=== PATIENT | male | born 1950 | race Caucasian/White ===

== ENCOUNTER → 2016-11-01 | Outpatient (CLI) | payer MEDICARE ==
--- NOTE | 2016-11-01 16:54 | XR ---
First digit left foot HISTORY: Pain Reviews of the first digit of the left foot There is marginal spurring, joint space loss, subchondral sclerosis present at the interphalangeal alonso int, metatarsophalangeal joint of the first digit of the left foot. 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 There is soft tissue swelling pres ent. No bone erosion. Alignment is maintained. IMPRESSION: Osteoarthritis.
--- NOTE | 2016-11-01 17:06 | XR ---
Left shoulder HISTORY: Pain 3 views of the left shoulder Bone mineralization and alignment are maintained. Some hypertrophic change questioned at the acromioc lavicular joint, glenohumeral joint shows some mild joint space loss. Distal acromion is downturned. IMPRESSION: Osteoarthritis, shoulder MRI may be of benefit, correlate for impingement
== END | disposition home or self-care (01) ==
LOC: RADXRMAIN 13:53
PROVIDERS: ATTEND Family Medicine
DX: M19.012 Primary osteoarthritis, left shoulder (principal); M19.072 Primary osteoarthritis, left ankle and foot

== ENCOUNTER → 2017-10-24 | Outpatient (CLI) | payer MEDICARE ==
--- NOTE | 2017-10-24 11:23 | XR ---
EXAMINATION TYPE: XR toes LT DATE OF EXAM: 10/24/2017 COMPARISON: 11/01/2016 HISTORY: Follow-up for gout of the left great toe. Left toe pain. TECHNIQUE: 3 views of the left great toe were obtained. FINDINGS: Again at the metacarpophalangeal joint and interphalangeal joint there are bony irregularit y, marginal spurring, joint space narrowing and subchondral sclerosis with overhanging edges. There i s no new osseous erosion or cortical reaction in comparison to the prior exam. Soft tissue swelling i s noted globally of the first digit. IMPRESSION: Similar arthrosis of the first digit at the metacarpophalangeal joint and interphalangeal joint may be on the basis of gouty arthrosis and/or osteoarthrosis. No new cortical erosion.
== END | disposition home or self-care (01) ==
LOC: RADXRMAIN 10:31
PROVIDERS: ATTEND Family Medicine
DX: M18.12 Unilateral primary osteoarthritis of first carpometacarpal joint, left hand (principal); M10.072 Idiopathic gout, left ankle and foot

== ENCOUNTER 2017-11-30 08:08 | Emergency (ER) | payer MEDICARE ==
[2017-11-30] MEDS ORDERED: SODIUM CHLORIDE 0.9% 1,000 ML IV STA (08:29)
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
[2017-11-30] MEDS ORDERED: diphenhydrAMINE 50 MG/ML 1 ML VIAL IVP STA (09:02)
[2017-11-30] MEDS ORDERED: ONDANSETRON 4 MG/2 ML VIAL IVP STA (09:02)
[2017-11-30 09:10] LABS: Basophils % (A) 1 %; Eosinophils # (A) 0.4 k/uL (0-0.7); Eosinophils % (A) 8 %; HCT 41.5 % (39.0-53.0); HGB 14.1 gm/dL (13.0-17.5); Lymphocytes % (A) 18 %; MCH 30.9 pg (25.0-35.0); MCHC 33.9 g/dL (31.0-37.0); MCV 91.3 fL (80.0-100.0); Mean Platelet Volume 6.6; Monocytes # (A) 0.6 k/uL (0-1.0); Monocytes % (A) 11 %; Neutrophils # (A) 3.3 k/uL (1.3-7.7); Neutrophils % (A) 61 %; Platelet Count 256 k/uL (150-450); RBC 4.55 m/uL (4.30-5.90); RDW 14.1 % (11.5-15.5); WBC 5.4 k/uL (3.8-10.6)
[2017-11-30 09:18] LABS: Partial Thromboplastin Time 25.9 sec (22.0-30.0); Prothrombin Time 9.7 sec (9.0-12.0)
[2017-11-30 09:21] LABS: ALT 35 U/L (21-72); AST 21 U/L (17-59); Albumin 3.8 g/dL (3.5-5.0); Alkaline Phosphatase 69 U/L (38-126); Anion Gap 6 mmol/L; Blood Urea Nitrogen 15 mg/dL (9-20); Calcium 9.2 mg/dL (8.4-10.2); Carbon Dioxide 27 mmol/L (22-30); Chloride 107 mmol/L (98-107); Glucose 113 mg/dL (74-99); Magnesium 1.9 mg/dL (1.6-2.3); Phosphorus 3.5 mg/dL (2.5-4.5); Potassium 4.1 mmol/L (3.5-5.1); Sodium 140 mmol/L (137-145); Total Bilirubin 0.4 mg/dL (0.2-1.3); Total Protein 6.2 g/dL (6.3-8.2)
[2017-11-30 09:33] LABS: Creatine Kinase 66 U/L (55-170)
[2017-11-30 09:44] LABS: Creatine Kinase MB 1.6 ng/mL (0.0-2.4); Troponin I <0.012 ng/mL (0.000-0.034)
--- NOTE | 2017-11-30 09:55 | CT ---
EXAMINATION TYPE: CT brain wo con DATE OF EXAM: 11/30/2017 COMPARISON: None HISTORY: 67-year-old male complains of headache and weakness. TECHNIQUE: Examination was done in axial plane without intravenous contrast. Coronal and sagittal r econstructions performed. CT DLP: 861 mGycm Automated exposure control for dose reduction was used. FINDINGS: There is no evidence of acute intracranial hemorrhage, acute ischemic changes, mass, mass-effect, or extra-axial fluid collection. There is no effacement of cerebral sulci or basal subarachnoid cister ns. There is no hydrocephalus. There is no midline shift. Thomas-white matter distinction is preserv ed. There is mild bifrontal atrophy. Moderate mucosal thickening ethmoid air cells. Mastoid air cells well pneumatized. IMPRESSION: Mild bifrontal atrophy. No acute intracranial abnormality seen. Moderate chronic ethmoid sinus disease.
--- NOTE | 2017-11-30 10:39 | CT ---
EXAMINATION TYPE: CT angio head neck DATE OF EXAM: 11/30/2017 COMPARISON: Correlation CT brain same day HISTORY: 67-year-old male with pain and weakness TECHNIQUE: Contiguous axial scanning of the head and neck performed with IV Contrast, patient injecte d with 65 mL of Isovue 370. Coronal/sagittal MIP reconstructions performed. CT DLP: 861.00 mGycm Automated exposure control for dose reduction was used. FINDINGS: Neck: There is underlying nodularity within the thyroid gland measuring up to 2.1 cm on the right and 1.2 c m on the left. Dedicated thyroid ultrasound could further evaluate. Conventional arch vessel branching anatomy. Mild atherosclerotic calcifications at the origin of the left subclavian artery without significant stenosis. There is mild atherosclerotic calcification at the right carotid bifurcation. The right common and in ternal carotid arteries are patent without significant stenosis. Mild to moderate atherosclerotic change at the left bifurcation and carotid bulb causing a mild, less than 30% stenosis at the carotid bulb level. The remainder of the left common and internal carotid a rteries are patent. The right vertebral artery is diminutive. The vertebral arteries are otherwise patent throughout thei r course. Head: The V4 segment right vertebral artery becomes even more diminutive. Incidental prominent right camera mechanic ior communicating artery. Very minimal to mild atherosclerotic calcifications are present in the carotid siphons. No significan t stenosis, arterial occlusion, or aneurysmal change. Dural venous sinuses are patent. IMPRESSION: 1. NECK: [id number] atherosclerotic change at the left carotid bifurcation with mild, less than 30% stenosis at the left carotid bulb. No hemodynamically significant stenosis appreciated in either internal carotid artery. Incidental dominant left vertebral artery. 2. HEAD: Again, diminutive right vertebral artery. Incidental prominent right posterior communicating artery. No significant stenosis, arterial occlusion, or aneurysmal changes seen. 3. Other: Multiple nodules in the thyroid gland measuring up to 2.1 cm. Dedicated thyroid ultrasound recommended on a nonemergent basis.
[2017-11-30 11:25] VITALS: BP 145/90; PULSE 79; RESP 18; TEMP 97
== END 2017-11-30 11:25 | disposition home or self-care (01) ==
LOC: EC 08:08
DX: H81.10 Benign paroxysmal vertigo, unspecified ear (principal); R51 Headache; E78.5 Hyperlipidemia, unspecified; I10 Essential (primary) hypertension; J44.9 Chronic obstructive pulmonary disease, unspecified; E07.9 Disorder of thyroid, unspecified; M19.90 Unspecified osteoarthritis, unspecified site; N42.9 Disorder of prostate, unspecified; G47.30 Sleep apnea, unspecified; F32.9 Major depressive disorder, single episode, unspecified; F41.9 Anxiety disorder, unspecified; Z87.891 Personal history of nicotine dependence; Z79.1 Long term (current) use of non-steroidal anti-inflammatories (NSAID); Z79.02 Long term (current) use of antithrombotics/antiplatelets; Z79.51 Long term (current) use of inhaled steroids; Z79.82 Long term (current) use of aspirin; Z79.899 Other long term (current) drug therapy; Z86.14 Personal history of Methicillin resistant Staphylococcus aureus infection; Z98.890 Other specified postprocedural states
CPT/HCPCS: 99284 ×2; 96374 ×2; 96375 ×2; 96361 ×3; 36415; 93005; 80053; 82550; 82553; 83735; 84100; 84484; 85025; 85610; 85730; 70496; 70450; 70498; J1200; J2405; Q9967

== ENCOUNTER → 2018-01-04 | Outpatient (CLI) | payer MEDICARE ==
[2018-01-04 15:18] LABS: T4, Free (Free Thyroxine) 0.94 ng/dL (0.78-2.19)
== END | disposition home or self-care (01) ==
LOC: LABWHC1 14:24
PROVIDERS: ATTEND Internal Medicine Endocrinology, Diabetes & Metabolism
DX: E04.1 Nontoxic single thyroid nodule (principal)
CPT/HCPCS: 36415; 84439; 84443

== ENCOUNTER 2018-01-22 08:55 | Inpatient (IN) | payer MEDICARE ==
[2018-01-22] MEDS ORDERED: FUROSEMIDE 10 MG/ML 2 ML VIAL IV ONE (09:22)
[2018-01-22] MEDS ORDERED: HYDROmorphone 1 MG/ML 1 ML SYRINGE IVP STA (09:26)
[2018-01-22] MEDS ORDERED: IPRATROPIUM-ALBUTEROL 3 ML NEB INHALATION STA (09:26)
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
[2018-01-22] MEDS ORDERED: FUROSEMIDE 10 MG/ML 4 ML VIAL IV STA (09:27)
[2018-01-22] MEDS ORDERED: SODIUM CHLORIDE 0.9% 500 ML IV SCH (09:30)
[2018-01-22 09:44] LABS: Basophils % (A) 0 %; Eosinophils # (A) 0.3 k/uL (0-0.7); Eosinophils % (A) 3 %; HCT 32.9 % (39.0-53.0); HGB 10.9 gm/dL (13.0-17.5); Lymphocytes # (A) 0.9 k/uL (1.0-4.8); Lymphocytes % (A) 11 %; MCH 30.2 pg (25.0-35.0); MCV 91.4 fL (80.0-100.0); Mean Platelet Volume 6.8; Monocytes # (A) 0.6 k/uL (0-1.0); Monocytes % (A) 7 %; Neutrophils # (A) 6.7 k/uL (1.3-7.7); Neutrophils % (A) 78 %; Platelet Count 289 k/uL (150-450); RDW 13.8 % (11.5-15.5); WBC 8.6 k/uL (3.8-10.6)
[2018-01-22 09:47] LABS: INR 1.1 (<1.2); Partial Thromboplastin Time 28.2 sec (22.0-30.0); Prothrombin Time 10.3 sec (9.0-12.0)
[2018-01-22 09:51] LABS: ALT 117 U/L (21-72); AST 99 U/L (17-59); Albumin 3.2 g/dL (3.5-5.0); Alkaline Phosphatase 93 U/L (38-126); Anion Gap 8 mmol/L; Blood Urea Nitrogen 24 mg/dL (9-20); Calcium 8.6 mg/dL (8.4-10.2); Carbon Dioxide 23 mmol/L (22-30); Chloride 105 mmol/L (98-107); Glucose 121 mg/dL (74-99); Potassium 4.4 mmol/L (3.5-5.1); Sodium 136 mmol/L (137-145); Total Bilirubin 0.6 mg/dL (0.2-1.3); Total Protein 5.9 g/dL (6.3-8.2)
--- NOTE | 2018-01-22 09:55 | XR ---
EXAMINATION TYPE: XR chest 2V DATE OF EXAM: 01/22/2018 COMPARISON: 03/09/2016 HISTORY: Shortness of breath TECHNIQUE: Frontal and lateral views of the chest are obtained. FINDINGS: Scattered senescent parenchymal changes noted. Hyperinflation compatible with COPD. No evidence for infiltrate. No evidence for atelectasis. Heart size is stable. Mediastinal structures are stable and grossly unremarkable. No evidence for hilar prominence. Degenerative changes dorsal spine. IMPRESSION: 1. No evidence for acute pulmonary disease.
[2018-01-22 10:38] LABS: Appearance,Urine Clear (Clear); Bilirubin,Urine Negative (Negative); Blood,Urine Negative (Negative); Color,Urine Yellow; Glucose,Urine (UA) Negative (Negative); Ketones,Urine Negative (Negative); Leukocyte Esterase,Urine Negative (Negative); Nitrite,Urine Negative (Negative); PH, Urine 5.5 (5.0-8.0); Protein,Urine Negative (Negative); Specific Gravity,Urine 1.009 (1.001-1.035); Urobilinogen,Urine <2.0 mg/dL (<2.0)
[2018-01-22] MEDS ORDERED: LEVOFLOXACIN 750MG-D5W PMX 750 MG in DEXTROSE/WATER 1 150ML.BAG IVPB STA (11:13)
--- NOTE | 2018-01-22 11:17 | US ---
EXAMINATION TYPE: US venous doppler duplex LE LT DATE OF EXAM: 01/22/2018 9:23 AM COMPARISON: NONE CLINICAL HISTORY: Pain. Swelling since bee stings on Dec 31, 2017 SIDE PERFORMED: Left TECHNIQUE: The lower extremity deep venous system is examined utilizing real time linear array sonog cheyanne with graded compression, doppler sonography and color-flow sonography. VESSELS IMAGED: External Iliac Vein (EIV) Common Femoral Vein Deep Femoral Vein Greater Saphenous Vein * Femoral Vein Popliteal Vein Small Saphenous Vein * (* superficial vessels) Left Leg: Negative for DVT IMPRESSION: 1. No diagnostic evidence of DVT
[2018-01-22] MEDS: FUROSEMIDE 10 MG/ML 4 ML VIAL IV SCH (15:17)
[2018-01-22] MEDS: IPRATROPIUM-ALBUTEROL 3 ML NEB INHALATION SCH ×3 (15:51→23:41)
[2018-01-22] MEDS: NAPROXEN 250 MG TAB PO SCH (18:26)
[2018-01-22] MEDS: ACETAMINOPHEN TAB 325 MG TAB PO PRN (18:27)
[2018-01-22] MEDS: ATORVASTATIN 80 MG TAB PO SCH (19:51)
[2018-01-22] MEDS: DULoxetine HCL 60 MG CAPSULE.DR PO SCH (19:51)
[2018-01-22] MEDS: MONTELUKAST 10 MG TAB PO SCH (19:52)
[2018-01-22] MEDS: METOPROLOL TARTRATE 25 MG TAB PO SCH (19:52)
[2018-01-23] MEDS: FUROSEMIDE 10 MG/ML 4 ML VIAL IV SCH ×2 (00:36→08:16)
[2018-01-23] MEDS: IPRATROPIUM-ALBUTEROL 3 ML NEB INHALATION SCH ×5 (03:56→19:11)
[2018-01-23] MEDS: NAPROXEN 250 MG TAB PO SCH ×2 (06:31→17:55)
[2018-01-23] MEDS: LEVOTHYROXINE 25 MCG TAB PO SCH (06:31)
[2018-01-23] MEDS: EZETIMIBE 10 MG TAB PO SCH (08:16)
[2018-01-23] MEDS: POTASSIUM CHLORIDE ER 10 MEQ TAB.ER.PRT PO SCH (08:17)
[2018-01-23] MEDS: LISINOPRIL 10 MG TAB PO SCH (08:17)
[2018-01-23] MEDS: ASPIRIN 81 MG PO SCH (08:17)
[2018-01-23] MEDS: TAMSULOSIN 0.4 MG CAP.ER.24H PO SCH (08:17)
[2018-01-23] MEDS: METOPROLOL TARTRATE 25 MG TAB PO SCH ×2 (08:17→22:01)
[2018-01-23] MEDS: DULoxetine HCL 60 MG CAPSULE.DR PO SCH ×2 (08:17→22:00)
[2018-01-23] MEDS ORDERED: MELOXICAM 7.5 MG TAB PO SCH (09:00)
[2018-01-23] MEDS ORDERED: LEVOFLOXACIN 750MG-D5W PMX 750 MG in DEXTROSE/WATER 1 150ML.BAG IVPB SCH (09:00)
[2018-01-23] MEDS ORDERED: VANCOMYCIN IV PER PHARMACY 1 EACH MISC MISCELLANE PRN (12:28)
[2018-01-23] MEDS ORDERED: ALPRAZolam 0.25 MG TAB PO PRN (12:56)
[2018-01-23] MEDS ORDERED: ONDANSETRON 4 MG/2 ML VIAL IVP PRN (12:56)
[2018-01-23] MEDS ORDERED: MELATONIN 3 MG TABLET PO PRN (12:56)
[2018-01-23] MEDS: VANCOMYCIN 2,000 MG in SODIUM CHLORIDE 0.9% 500 ML IVPB SCH ×2 (13:11→22:51)
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
[2018-01-23] MEDS ORDERED: LIDOCAINE 1% INJ 10MG/ML (20 ML MDV) SQ ONE (14:34)
[2018-01-23] MEDS ORDERED: HYDROmorphone 1 MG/ML 1 ML SYRINGE ONE (14:55)
[2018-01-23] MEDS ORDERED: HYDROmorphone 1 MG/ML 1 ML SYRINGE IVP STA (15:10)
[2018-01-23] MEDS: ENOXAPARIN 40 MG/0.4 ML SYRINGE SQ SCH (15:11)
[2018-01-23] MEDS: FUROSEMIDE 40 MG TAB PO SCH (15:15)
--- NOTE | 2018-01-23 16:09 | CONS ---
CONSULTATION This is a 67-year-old gentleman who came to the [facility] ER with a history of marked swelling of his left lower extremity. This started about 3 weeks ago when he was stung by a bee. Now he has developed marked swelling and redness and there is a blister formation noted on the lower extremity and there is fluctuation of fluid most likely abscess. The patient is scheduled to have I and D and take deep culture. MEDICAL HISTORY: Patient has a history of coronary artery disease, hyperlipidemia, hypertension, osteoarthritis, obstructive sleep apnea, on CPAP. EXAMINATION: NECK: Supple trachea central. CHEST: Clear to auscultation. ABDOMEN: Soft. Femoral pulses are present. The left lower extremity has marked swelling and there is some blister formation noted at the lower 1/3 of the leg and also there was a fluctuation noted that seems to be abscess. PLAN: I and D and deep culture and local wound care. MMODL / IJN: [id number] /
[2018-01-23] MEDS: MONTELUKAST 10 MG TAB PO SCH (22:00)
[2018-01-23] MEDS: ATORVASTATIN 80 MG TAB PO SCH (22:00)
[2018-01-23] MEDS: SILVER sulfADIAZINE Cream 400 GM 1 APPLIC APPLIC TOPICAL SCH (22:01)
[2018-01-24] MEDS: IPRATROPIUM-ALBUTEROL 3 ML NEB INHALATION SCH ×5 (00:35→20:02)
[2018-01-24] MEDS ORDERED: IPRATROPIUM-ALBUTEROL 3 ML NEB INHALATION PRN (00:35)
[2018-01-24] MEDS: NAPROXEN 250 MG TAB PO SCH ×2 (05:41→18:11)
[2018-01-24] MEDS: LEVOTHYROXINE 25 MCG TAB PO SCH (05:41)
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
[2018-01-24] MEDS: VANCOMYCIN 2,000 MG in SODIUM CHLORIDE 0.9% 500 ML IVPB SCH ×2 (08:12→21:19)
--- NOTE | 2018-01-24 08:34 | PCN ---
PROCEDURE NOTE PREOPERATIVE DIAGNOSIS: Abscess left leg involving the anterior aspect of the lower leg. PROCEDURE: This patient was seen. The patient came with cellulitis and blister formation and abscess formation on the lower anterior aspect of the left leg. Left leg was prepped and draped in usual sterile manner and 1% lidocaine infiltrated. A 3 cm incision was made on the anterior aspect of the lower leg, deepened through skin, fat and fascia. Upon opening with hemostat, a large amount of pus came out, which was drained. We took the culture from the from the pus and after that, we irrigated the wound with saline and then we used Silvadene cream for the cellulitis and incision was packed with gauze and dressing applied. Patient tolerated the procedure well. PLAN: We will change the dressing tomorrow. Left leg elevation. MMODL / IJN: [id number] /
[2018-01-24] MEDS ORDERED: LEVOFLOXACIN 750 MG TAB PO SCH (09:00)
[2018-01-24] MEDS: TAMSULOSIN 0.4 MG CAP.ER.24H PO SCH (09:05)
[2018-01-24] MEDS: LISINOPRIL 10 MG TAB PO SCH (09:06)
[2018-01-24] MEDS: EZETIMIBE 10 MG TAB PO SCH (09:06)
[2018-01-24] MEDS: METOPROLOL TARTRATE 25 MG TAB PO SCH ×2 (09:06→21:16)
[2018-01-24] MEDS: POTASSIUM CHLORIDE ER 10 MEQ TAB.ER.PRT PO SCH (09:06)
[2018-01-24] MEDS: DULoxetine HCL 60 MG CAPSULE.DR PO SCH ×2 (09:06→21:17)
[2018-01-24] MEDS: FUROSEMIDE 40 MG TAB PO SCH ×2 (09:06→18:12)
[2018-01-24 09:39] LABS: Basophils # (A) 0.1 k/uL (0-0.2); Basophils % (A) 1 %; Eosinophils # (A) 0.4 k/uL (0-0.7); Eosinophils % (A) 4 %; HCT 35.6 % (39.0-53.0); HGB 11.3 gm/dL (13.0-17.5); Lymphocytes # (A) 1.1 k/uL (1.0-4.8); Lymphocytes % (A) 13 %; MCH 29.5 pg (25.0-35.0); MCHC 31.8 g/dL (31.0-37.0); MCV 92.6 fL (80.0-100.0); Mean Platelet Volume 6.4; Monocytes # (A) 0.6 k/uL (0-1.0); Monocytes % (A) 7 %; Neutrophils # (A) 5.9 k/uL (1.3-7.7); Neutrophils % (A) 73 %; Platelet Count 393 k/uL (150-450); RBC 3.84 m/uL (4.30-5.90); RDW 13.7 % (11.5-15.5); WBC 8.1 k/uL (3.8-10.6)
[2018-01-24 09:57] LABS: Anion Gap 14 mmol/L; Blood Urea Nitrogen 23 mg/dL (9-20); Calcium 9.1 mg/dL (8.4-10.2); Carbon Dioxide 22 mmol/L (22-30); Chloride 101 mmol/L (98-107); Glucose 132 mg/dL (74-99); Potassium 4.6 mmol/L (3.5-5.1); Sodium 137 mmol/L (137-145)
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
--- NOTE | 2018-01-24 12:36 | ECHOF ---
Referral Reason:sob MEASUREMENTS -------- HEIGHT: 188.0 cm WEIGHT: 142.9 kg BP: 125/74 RVIDd: 3.2 cm (< 3.3) IVSd: 1.3 cm (0.6 - 1.1) LVIDd: 5.6 cm (3.9 - 5.3) LVPWd: 1.1 cm (0.6 - 1.1) IVSs: 1.6 cm LVIDs: 4.1 cm LVPWs: 1.8 cm LA Diam: 4.5 cm (2.7 - 3.8) LAESV Index (A-L): 28.38 ml/m Ao Diam: 3.6 cm (2.0 - 3.7) AV Cusp: 2.5 cm (1.5 - 2.6) MV EXCURSION: 22.495 mm (> 18.000) MV EF SLOPE: 128 mm/s (70 - 150) EPSS: 0.6 cm MV E Michael: 1.11 m/s MV DecT: 218 ms MV A Michael: 0.92 m/s MV E/A Ratio: 1.21 FINDINGS -------- Sinus rhythm. This was a technically adequate study. The left ventricular size is normal. Left ventricular wall thickness is normal. Overall left vent ricular systolic function is normal with, an EF between 60 - 65 %. The right ventricle is normal in size. Normal LA size by volume 22+/-6 ml/m2. The right atrium is normal in size. There is mild aortic valve sclerosis. Mild mitral annular calcification present. The tricuspid valve appears structurally normal. The pulmonic valve was not well visualized. The aortic root size is normal. Normal inferior vena cava with normal inspiratory collapse consistent with estimated right atrial pre ssure of 5 mmHg. The inferior vena cava is mildly dilated. There is no pericardial effusion. CONCLUSIONS -------- 1. Sinus rhythm. 2. This was a technically adequate study. 3. The left ventricular size is normal. 4. Left ventricular wall thickness is normal. 5. Overall left ventricular systolic function is normal with, an EF between 60 - 65 %. 6. The right ventricle is normal in size. 7. Normal LA size by volume 22+/-6 ml/m2. 8. The right atrium is normal in size. 9. There is mild aortic valve sclerosis. 10. Mild mitral annular calcification present. 11. The tricuspid valve appears structurally normal. 12. The pulmonic valve was not well visualized. 13. The aortic root size is normal. 14. Normal inferior vena cava with normal inspiratory collapse consistent with estimated right atrial pressure of 5 mmHg. 15. The inferior vena cava is mildly dilated. 16. There is no pericardial effusion. SHIP CONSTRUCTION TEACHER: Ester Sood RDCS
[2018-01-24] MEDS: SILVER sulfADIAZINE Cream 400 GM 1 APPLIC APPLIC TOPICAL SCH ×2 (12:47→21:21)
[2018-01-24] MEDS: ENOXAPARIN 40 MG/0.4 ML SYRINGE SQ SCH (12:47)
[2018-01-24] MEDS: ASPIRIN 81 MG PO SCH (12:47)
[2018-01-24] MEDS ORDERED: LACTATED RINGERS 1,000 ML IV ONE (15:47)
[2018-01-24] MEDS ORDERED: PROPOFOL 10 MG/ML 20 ML VIAL IV ONE (15:58)
[2018-01-24] MEDS ORDERED: MIDAZOLAM 2 MG/2 ML VIAL ONE (15:58)
[2018-01-24] MEDS ORDERED: fentaNYL (PF) 50 MCG/ML 2 ML AMP ONE (15:58)
[2018-01-24] MEDS ORDERED: KETAMINE 10 MG/ML 20 ML VIAL ONE (15:58)
[2018-01-24] MEDS ORDERED: LIDOCAINE 1% INJ 10MG/ML (20 ML MDV) ONE (15:58)
[2018-01-24] MEDS ORDERED: LIDOCAINE 1% INJ 10MG/ML (20 ML MDV) SQ ONE ×2 (16:18→16:36)
[2018-01-24 17:02] LABS: Glucose,Whole Blood 90 mg/dL (75-99)
[2018-01-24] MEDS ORDERED: HYDROmorphone 1 MG/ML 1 ML SYRINGE IVP ONE (17:09)
--- NOTE | 2018-01-24 17:52 | PN ---
PROGRESS NOTE DATE OF SERVICE: 01/24/2018 REASON FOR FOLLOWUP: Left leg abscess and cellulitis. INTERVAL HISTORY: The patient is afebrile. He is currently breathing comfortably. Denies having any chest pain or shortness of breath or cough. No abdominal pain. Overall pain and swelling to the left leg have slightly decreased. However, the patient has been evaluated by Vascular Surgery and planning for being taken to the OR for drainage of any deep collection this afternoon. PHYSICAL EXAMINATION: Blood pressure is 125/74 with a pulse of 88, temperature 97.5. He is 95% on room air. General description is an elderly male up in the chair in no distress. RESPIRATORY SYSTEM: Unlabored breathing. Clear to auscultation anteriorly. HEART: S1, S2. Regular rate and rhythm. Left is currently dressed up. No obvious drainage on the dressing. LABS: Hemoglobin 11.3, white count 8.1. BUN of 23, creatinine 0.93. Wound culture is currently showing a presumptive Staph aureus. DIAGNOSTIC IMPRESSION AND PLAN: Patient with left leg abscess and cellulitis, status post drainage, with plan for deep drainage this afternoon. Culture showing presumptive Staphylococcus aureus, likely MRSA. Patient is covered with vancomycin, Pharmacy to dose, target of 15. That will be continued. Discontinue Levaquin, watching his kidney function closely as well as cultures. Family present at the bedside. Their questions were answered. MMODL / IJN: [id number] /
[2018-01-24] MEDS: ATORVASTATIN 80 MG TAB PO SCH (21:16)
[2018-01-24] MEDS: MONTELUKAST 10 MG TAB PO SCH (21:17)
--- NOTE | 2018-01-24 23:16 | PN ---
PROGRESS NOTE DATE OF SERVICE: 01/24/2018 PRESENT COMPLAINT: Leg abscess. INTERVAL HISTORY: This is a patient following a bee bite, developed abscess on the leg. This was drained yesterday again. The patient is taken to the OR today. A significant amount of pus was obtained. I do not have the formal operative report. The patient is lying in bed. The patient is feeling better. No fever, chills. REVIEW OF SYSTEMS: Done for constitutional, cardiovascular, GI, pulmonary; relevant findings above. CURRENT MEDICATIONS: Reviewed that include IV vancomycin. EXAMINATION: Afebrile, pulse 81, respirations 14, blood pressure 117/61, pulse ox 95% on room air. GENERAL APPEARANCE: Lying in bed, awake. EYES: Pupils equal. Conjunctivae normal. HEENT: External nose and ears normal. Oral cavity normal. NECK: JVD not raised palpable. Mass not palpable. RESPIRATORY: Effort normal. LUNGS: Diminished breath sounds. CARDIOVASCULAR: First and second sounds normal. No edema. ABDOMEN: Soft, nontender. Liver and spleen not palpable. PSYCHIATRY: Alert and oriented x3. Mood and affect normal. DERMATOLOGICAL: Left leg has a dressing in place. INVESTIGATIONS: White count 8.1, hemoglobin 11.3. Potassium 4.6, creatinine 0.93. Wound cultures growing Staph aureus. ASSESSMENT: 1. Left leg with a severe abscess in place, growing Staphylococcus aureus. The patient is on IV vancomycin, status post incision and drainage x2. 2. Coronary artery disease with prior stent in 2016. 3. Chronic obstructive pulmonary disease in an ex-smoker with acute exacerbation. 4. Hyperlipidemia. 5. Essential hypertension. 6. Primary osteoarthritis. 7. Benign prostatic hypertrophy. 8. Obstructive sleep apnea, uses a CPAP. 9. Morbid obesity, BMI of 40.1. 10.Hypothyroid. 11.Anxiety and depression, not otherwise specified. PLAN: Continue current medication and treatment plan, including IV vancomycin. Care was discussed with the patient. Wound care to continue per Dr. Burton. Follow. MMODL / IJN: [id number] /
[2018-01-25] MEDS: LEVOTHYROXINE 25 MCG TAB PO SCH (06:02)
[2018-01-25] MEDS: NAPROXEN 250 MG TAB PO SCH ×2 (06:02→18:58)
--- NOTE | 2018-01-25 06:23 | PCN ---
PROCEDURE NOTE SURGEON: Melquiades Burton MD PREOPERATIVE DIAGNOSIS: Abscess left lower extremity. POSTOPERATIVE DIAGNOSIS: PROCEDURE: I and D of the abscess. PROCEDURE: This patient was brought to the operating room. This patient had a history of bee sting about 2 weeks ago, history of diabetes. The patient has marked cellulitis and swelling and some blister formation noted. Left leg was prepped and draped in usual sterile manner. The patient had I and D done yesterday. He developed recurrent abscess on the lower leg, medial aspect of the lower leg and the lateral aspect of the lower leg. It was prepped and draped in usual sterile manner. An incision on the anterior leg was extended and a pocket of pus was drained and then another incision was made on the medial aspect of the left lower leg about 2 cm incision, deepened skin and fat and there was a pocket of pus which was drained. Then there was some noted on the upper aspect of the lower leg and a small incision was made about 1 cm, but no pus was noted. The wound was copiously irrigated with hydrogen peroxide and saline and there was no evidence of necrotizing fasciitis noted. Wound incision was kept open and we put a iodoform gauze packed and dressing applied. Patient will need change of dressing daily. Continue with the same IV antibiotic and leg elevation. MMODL / IJN: [id number] /
[2018-01-25] MEDS: IPRATROPIUM-ALBUTEROL 3 ML NEB INHALATION SCH ×4 (06:49→20:08)
[2018-01-25] MEDS: DULoxetine HCL 60 MG CAPSULE.DR PO SCH ×2 (08:27→21:01)
[2018-01-25] MEDS: ASPIRIN 81 MG PO SCH (08:27)
[2018-01-25] MEDS: POTASSIUM CHLORIDE ER 10 MEQ TAB.ER.PRT PO SCH (08:27)
[2018-01-25] MEDS: VANCOMYCIN 2,000 MG in SODIUM CHLORIDE 0.9% 500 ML IVPB SCH (08:28)
[2018-01-25] MEDS: FUROSEMIDE 40 MG TAB PO SCH ×2 (08:28→17:44)
[2018-01-25] MEDS: ENOXAPARIN 40 MG/0.4 ML SYRINGE SQ SCH (08:28)
[2018-01-25] MEDS: EZETIMIBE 10 MG TAB PO SCH (08:28)
[2018-01-25] MEDS: SILVER sulfADIAZINE Cream 400 GM 1 APPLIC APPLIC TOPICAL SCH ×2 (08:28→22:40)
[2018-01-25] MEDS: TAMSULOSIN 0.4 MG CAP.ER.24H PO SCH (08:28)
[2018-01-25] MEDS: LISINOPRIL 10 MG TAB PO SCH (08:28)
[2018-01-25] MEDS: METOPROLOL TARTRATE 25 MG TAB PO SCH ×2 (08:28→21:01)
[2018-01-25 09:25] LABS: Basophils # (A) 0.1 k/uL (0-0.2); Basophils % (A) 1 %; Eosinophils # (A) 0.4 k/uL (0-0.7); Eosinophils % (A) 5 %; HGB 10.8 gm/dL (13.0-17.5); Lymphocytes # (A) 1.1 k/uL (1.0-4.8); Lymphocytes % (A) 14 %; MCH 29.6 pg (25.0-35.0); MCHC 31.8 g/dL (31.0-37.0); MCV 92.9 fL (80.0-100.0); Mean Platelet Volume 6.7; Monocytes # (A) 0.6 k/uL (0-1.0); Monocytes % (A) 7 %; Neutrophils # (A) 5.8 k/uL (1.3-7.7); Neutrophils % (A) 72 %; Platelet Count 429 k/uL (150-450); RBC 3.66 m/uL (4.30-5.90); RDW 13.7 % (11.5-15.5); WBC 8.1 k/uL (3.8-10.6)
[2018-01-25 09:48] LABS: Anion Gap 9 mmol/L; Blood Urea Nitrogen 22 mg/dL (9-20); Calcium 8.8 mg/dL (8.4-10.2); Carbon Dioxide 28 mmol/L (22-30); Chloride 101 mmol/L (98-107); Glucose 122 mg/dL (74-99); Potassium 4.8 mmol/L (3.5-5.1); Sodium 138 mmol/L (137-145)
--- NOTE | 2018-01-25 12:24 | P.PN ---
Subjective Mr. Cosby is seen and examined sitting up in the chair eating breakfast. He underwent incision and drainage of left lower extremity abscess and is currently receiving IV antibiotics. Echocardiogram obtained reveals preserved left ventricular systolic function with ejection fraction 60-65%, mild aortic valve sclerosis with no stenosis. Laboratory data reviewed, hemoglobin 10.8, platelets 429, sodium 138, potassium 4.8, creatinine 0.88. Blood pressure 108/ 68 heart rate 74. He denies symptoms of chest pain shortness of breath, dizziness or palpitations. He states he has been standing up and bearing weight on his left leg without difficulty. Objective - Vital Signs Vital signs: Vital Signs Temp 97.0 F L 01/25/18 07:00 Pulse 77 01/25/18 10:51 Resp 18 01/25/18 07:00 BP 108/68 01/25/18 07:00 Pulse Ox 93 L 01/25/18 07:00 Intake & Output 01/24/18 01/25/18 01/25/18 18:59 06:59 18:59 Intake Total 1000 900 240 Output Total 10 Balance 990 900 240 Intake: IV 800 Intake, IV Titration 500 Amount Vancomycin 2,000 mg In 500 Sodium Chloride 0.9% 500 ml @ 167 mls/hr IVPB Q12HR FADI Rx#:[id number] Oral 200 400 240 Output: Estimated Blood Loss 10 Other: Voiding Method Urinal # Voids 2 1 # Bowel Movements 0 - Exam GENERAL: Well-appearing, well-nourished and in no acute distress. NECK: Supple without JVD or thyromegaly. LUNGS: Breath sounds clear to auscultation bilaterally. Respiration equal and unlabored. No wheezes, rales or rhonchi. HEART: Regular rate and rhythm without murmurs, rubs or gallops. S1 and S2 heard. EXTREMITIES: Normal range of motion, left lower extremity dressing in place, trace nonpitting edema to the right lower extremity. No clubbing or cyanosis. Peripheral pulses intact. - Labs CBC & Chem 7: 01/25/18 08:41 01/25/18 08:41 Labs: Abnormal Lab Results - Last 24 Hours (Table) 01/25/18 01/25/18 Range/Units 08:41 08:41 RBC 3.66 L (4.30-5.90) m/uL Hgb 10.8 L (13.0-17.5) gm/dL Hct 34.0 L (39.0-53.0) % BUN 22 H (9-20) mg/dL Glucose 122 H (74-99) mg/dL Microbiology - Last 24 Hours (Table) 01/23/18 15:20 Gram Stain - Final Leg - Left Wound Culture - Final Staphylococcus aureus 01/22/18 09:27 Blood Culture - Preliminary Blood No Growth after 72 hours 01/22/18 09:27 Gram Stain - Final Leg - Left Wound Culture - Final Staphylococcus aureus 01/22/18 11:45 Blood Culture - Preliminary Blood No Growth after 48 hours Assessment and Plan Assessment: ASSESSMENT Left lower extremity cellulitis History of coronary artery disease status post stenting of proximal LAD 2016 Hypertension Dyslipidemia COPD Chronic lower extremity edema Obstructive sleep apnea Morbid obesity PLAN Stable from a cardiac perspective. Continue current medical regimen. Follow-up with Dr. Lindsay in 2 weeks. Nurse Practitioner note has been reviewed, I agree with a documented findings and plan of care. Patient was seen and examined.
[2018-01-25] MEDS: ACETAMINOPHEN TAB 325 MG TAB PO PRN (14:08)
[2018-01-25] MEDS: ceFAZolin IN SWFI 2 GM/20 ML SYRINGE IVP SCH (17:44)
--- NOTE | 2018-01-25 19:38 | PN ---
PROGRESS NOTE DATE OF SERVICE: 01/25/2018 PRESENTING COMPLAINT: Left leg abscess. INTERVAL HISTORY: This is a patient who bitten by bees, then let go for a few days and developed severe abscess on the left leg. Patient has had I&D x2. Discussed with Dr. Burton today; did not really go beyond the fascia, but a lot of pus was obtained. Pain is better getting better controlled. Patient has been up to the bathroom. No fever or chills. Tolerating a diet. His is present. REVIEW OF SYSTEMS: Done for constitutional, cardiovascular, GI, pulmonary, dermatological; relevant findings as above. Dressing change was done today. CURRENT MEDICATIONS: Reviewed. They include DuoNeb, IV Ancef. PHYSICAL EXAMINATION: Temperature 98.5, pulse 75, respiration 18, blood pressure 111/72, pulse ox 95% on room air. GENERAL APPEARANCE: Lying in bed, awake. Comfortable. EYES: Pupils equal. Conjunctivae normal. HEENT: External appearance of nose and ears normal. Oral cavity normal. NECK: JVD not raised. Mass not palpable. RESPIRATORY: Effort normal. LUNGS: Diminished breath sounds. CARDIOVASCULAR: First and second sounds normal. Mild edema. ABDOMEN: Soft, non-tender. Liver and spleen not palpable. PSYCHIATRY: Alert and oriented x3. Mood and affect normal. EXTREMITIES: Left leg dressing in place. INVESTIGATIONS: White count 8.1, hemoglobin 10.8, potassium 4.8, BUN 22, creatinine 0.88. Micro is growing MSSA. ASSESSMENT: 1. Left leg with severe abscess in place growing methicillin-susceptible Staphylococcus aeruginosa. Patient now switched over to IV Ancef from vancomycin, status post I&D x2; a lot of pus was obtained. 2. Coronary artery disease with prior stent in 2016. 3. Chronic obstructive pulmonary disease in an ex-smoker with acute exacerbation, now improving. 4. Hyperlipidemia. 5. Essential hypertension. 6. Primary osteoarthritis. 7. Benign prostatic hypertrophy. 8. Obstructive sleep apnea. Uses CPAP. 9. Morbid obesity with body mass index of 40.1. 10.Hypothyroid. 11.Anxiety and depression not otherwise specified. PLAN: Continue current medication and treatment plan. Care was discussed with the patient and his . I spoke to Dr. Burton. Patient will need at least 2 or 3 days of further inpatient stay. MMODL / IJN: [id number] /
[2018-01-25] MEDS ORDERED: VANCOMYCIN TROUGH DUE 1 EACH MISC MISCELLANE ONE (20:00)
[2018-01-25] MEDS: ATORVASTATIN 80 MG TAB PO SCH (21:01)
[2018-01-25] MEDS: MONTELUKAST 10 MG TAB PO SCH (21:02)
--- NOTE | 2018-01-25 23:23 | PN ---
PROGRESS NOTE DATE OF SERVICE: 01/25/2018. REASON FOR FOLLOWUP: Right leg MSSA abscess and cellulitis. INTERVAL HISTORY: The patient is currently afebrile, has been breathing comfortably. Denies having any chest pain, shortness of breath, cough. NO abdominal pain, or any worsening pain in the leg area. PHYSICAL EXAMINATION: Blood pressure is 111/72 with a pulse of 75, temperature of 98.5. He is 95% on room air. GENERAL DESCRIPTION: An elderly male lying in bed in no distress. RESPIRATORY SYSTEM: Unlabored breathing. Clear to auscultation anteriorly. HEART: S1, S2. Regular rate and rhythm. EXTREMITIES: Right leg swelling and redness slightly decreased. No drainage. LABS: Hemoglobin is 10.8, white count 8.1 with a BUN of 22, creatinine 0.81. DIAGNOSTIC IMPRESSION AND PLAN: Patient with right leg MSSA abscess and cellulitis, status post drainage of this abscess. Patient should be taken off of the isolation room and not be with another patient with multidrug resistant pathogen in the past. Local wound care to continue with iodoform packing. Antibiotic has been adjusted every 8 hours. Keep the patient on IV antibiotic for another 24 to 48 hours. Continue oral antibiotics. Continue supportive care. MMODL / IJN: [id number] /
[2018-01-26] MEDS: ceFAZolin IN SWFI 2 GM/20 ML SYRINGE IVP SCH ×4 (01:36→23:19)
[2018-01-26] MEDS: LEVOTHYROXINE 25 MCG TAB PO SCH (05:37)
[2018-01-26] MEDS: NAPROXEN 250 MG TAB PO SCH ×2 (05:37→18:13)
[2018-01-26 07:50] LABS: Anion Gap 10 mmol/L; Blood Urea Nitrogen 19 mg/dL (9-20); Calcium 9.2 mg/dL (8.4-10.2); Carbon Dioxide 27 mmol/L (22-30); Chloride 104 mmol/L (98-107); Glucose 99 mg/dL (74-99); Potassium 5.2 mmol/L (3.5-5.1); Sodium 141 mmol/L (137-145)
[2018-01-26] MEDS: DULoxetine HCL 60 MG CAPSULE.DR PO SCH ×2 (07:55→21:26)
[2018-01-26] MEDS: ASPIRIN 81 MG PO SCH (07:55)
[2018-01-26] MEDS: ENOXAPARIN 40 MG/0.4 ML SYRINGE SQ SCH (07:55)
[2018-01-26] MEDS: POTASSIUM CHLORIDE ER 10 MEQ TAB.ER.PRT PO SCH (07:56)
[2018-01-26] MEDS: METOPROLOL TARTRATE 25 MG TAB PO SCH ×2 (07:56→21:26)
[2018-01-26] MEDS: LISINOPRIL 10 MG TAB PO SCH (07:56)
[2018-01-26] MEDS: FUROSEMIDE 40 MG TAB PO SCH ×2 (07:56→17:31)
[2018-01-26] MEDS: TAMSULOSIN 0.4 MG CAP.ER.24H PO SCH (07:56)
[2018-01-26] MEDS: EZETIMIBE 10 MG TAB PO SCH (07:56)
[2018-01-26] MEDS: SILVER sulfADIAZINE Cream 400 GM 1 APPLIC APPLIC TOPICAL SCH ×2 (08:00→20:27)
[2018-01-26] MEDS: IPRATROPIUM-ALBUTEROL 3 ML NEB INHALATION SCH ×4 (08:24→19:54)
[2018-01-26] MEDS: MORPHINE SULFATE 2 MG/ML SYRINGE IVP PRN (12:44)
--- NOTE | 2018-01-26 16:12 | PN ---
PROGRESS NOTE DATE OF SERVICE: 01/26/2018. REASON FOR FOLLOWUP: Left leg MSSA abscess and cellulitis. INTERVAL HISTORY: The patient is currently afebrile. He is breathing comfortably. Pain and swelling to the left leg has decreased. Denies having any chest pain, shortness of breath, or cough. No more abdominal pain and no diarrhea. EXAMINATION: Blood pressure 101/62 with a pulse of 71, temperature 98.2. He is 97% on room air. General description is an elderly male lying in bed in no distress. RESPIRATORY SYSTEM: Unlabored breathing. Clear to auscultation anteriorly. HEART: S1, S2. Regular rate and rhythm. ABDOMEN: Soft, no tenderness. Left leg swelling and redness has decreased. No drainage. LABS: BUN of 19, creatinine 0.90. DIAGNOSTIC IMPRESSION AND PLAN: Patient with left leg abscess, multiple, status post drainage with culture being positive for MSSA. The patient is on cefazolin 2 g q.8h. That will continue over the weekend. Once his condition stabilizes, hopefully finish finish therapy with oral antibiotic and local wound care has been switched to Aquacel silver dressing. Continue supportive care. MMODL / IJN: [id number] /
--- NOTE | 2018-01-26 17:06 | PN ---
PROGRESS NOTE DATE OF SERVICE: January 26, 2018. PRESENTING COMPLAINT: Left leg abscess. INTERVAL HISTORY: This is a pleasant gentleman who was bitten by multiple bees what he describes as ground bees. It is unclear if that is recent. Patient presented after several days with severe abscess of the left leg. The patient has had I and D x2 by Dr. Burton. Growing MSSA. The wound did not go beyond the fascia. The patient still has swelling of the lower extremity. Getting IV antibiotics. Sitting up in a chair, up to the bathroom. Tolerating his diet. Fevers have been down. REVIEW OF SYSTEMS: Done for constitutional, cardiovascular, GI, pulmonary, dermatological, relevant findings as above. CURRENT MEDICATIONS: Reviewed that include IV Ancef. EXAMINATION: VITAL SIGNS: Afebrile, pulse 71, respiratory 20, blood pressure 101/62, pulse ox 97 percent on room air. GENERAL APPEARANCE: Sitting up in a chair, comfortable. EYES: Pupils are equal. Conjunctivae normal. HEENT external appearance of nose and ears normal. Oral cavity normal. NECK JVD not raised. Mass not palpable. RESPIRATORY: Effort normal. LUNGS are decreased breath sounds. CARDIOVASCULAR: 1st and 2nd sounds normal. Edema especially of the left extremities. ABDOMEN: Soft, nontender. Liver and spleen not palpable. PSYCHIATRY: Alert and oriented x3. Mood and affect normal. EXTREMITIES: Left leg dressing in place with edema. INVESTIGATIONS: Potassium 5.2, BUN and creatinine is normal. ASSESSMENT: 1. Left leg severe abscess status post I and D x2 growing MSSA on IV Ancef. 2. Coronary artery disease prior history of stent in 2016. 3. Chronic obstructive pulmonary disease in an ex-smoker with acute exacerbation, now stabilized. 4. Hyperlipidemia. 5. Essential hypertension. 6. Primary osteoarthritis. 7. Benign prostatic hypertrophy. 8. Obstructive sleep apnea, uses CPAP. 9. Morbid obesity BMI 40.1. 10.Hypothyroid. 11.Anxiety and depression, not otherwise specified. PLAN: Care was discussed with Dr. Burton from vascular. He thinks patient will be here at least over the weekend. This was also discussed with the patient. Before dressing changes some morphine has been ordered, has been quite painful. Otherwise, things are coming along pretty good. Continue treatment plan. Questions were answered. MMODL / IJN: [id number] /
[2018-01-26] MEDS: ATORVASTATIN 80 MG TAB PO SCH (21:26)
[2018-01-26] MEDS: MONTELUKAST 10 MG TAB PO SCH (21:27)
[2018-01-27] MEDS: NAPROXEN 250 MG TAB PO SCH ×2 (06:10→17:48)
[2018-01-27] MEDS: LEVOTHYROXINE 25 MCG TAB PO SCH (06:10)
[2018-01-27] MEDS: IPRATROPIUM-ALBUTEROL 3 ML NEB INHALATION SCH ×4 (07:15→21:17)
[2018-01-27] MEDS: POTASSIUM CHLORIDE ER 10 MEQ TAB.ER.PRT PO SCH (07:31)
[2018-01-27] MEDS: LISINOPRIL 10 MG TAB PO SCH (08:07)
[2018-01-27] MEDS: FUROSEMIDE 40 MG TAB PO SCH ×2 (08:07→15:41)
[2018-01-27] MEDS: ENOXAPARIN 40 MG/0.4 ML SYRINGE SQ SCH (08:07)
[2018-01-27] MEDS: DULoxetine HCL 60 MG CAPSULE.DR PO SCH ×2 (08:07→20:53)
[2018-01-27] MEDS: TAMSULOSIN 0.4 MG CAP.ER.24H PO SCH (08:07)
[2018-01-27] MEDS: EZETIMIBE 10 MG TAB PO SCH (08:07)
[2018-01-27] MEDS: METOPROLOL TARTRATE 25 MG TAB PO SCH ×2 (08:07→20:53)
[2018-01-27] MEDS: ASPIRIN 81 MG PO SCH (08:07)
[2018-01-27] MEDS: ACETAMINOPHEN TAB 325 MG TAB PO PRN (08:13)
[2018-01-27 09:18] LABS: Anion Gap 11 mmol/L; Blood Urea Nitrogen 20 mg/dL (9-20); Calcium 9.2 mg/dL (8.4-10.2); Carbon Dioxide 26 mmol/L (22-30); Chloride 102 mmol/L (98-107); Glucose 120 mg/dL (74-99); Potassium 4.8 mmol/L (3.5-5.1); Sodium 139 mmol/L (137-145)
[2018-01-27] MEDS: ceFAZolin IN SWFI 2 GM/20 ML SYRINGE IVP SCH ×3 (09:35→23:57)
[2018-01-27] MEDS: SILVER sulfADIAZINE Cream 400 GM 1 APPLIC APPLIC TOPICAL SCH ×2 (09:38→20:37)
[2018-01-27] MEDS: MORPHINE SULFATE 2 MG/ML SYRINGE IVP PRN (14:15)
--- NOTE | 2018-01-27 15:51 | P.PN ---
Subjective Patient is admitted for left lower limb multiple abscesses abscess drainage showed MSSA and infectious disease is recommending cefazolin IV for couple more days and discharge him home on oral antibiotics on Monday. Constitutional: Denied any fatigue denied any fever. Cardio vascular: denied any chest pain, palpitations Gastrointestinal denied any nausea vomiting Pulmonary: Denied any shortness of breath cough Neurologic denied any new focal deficits Objective - Vital Signs Vital signs: Vital Signs Temp 97.5 F L 01/27/18 14:56 Pulse 78 01/27/18 15:42 Resp 16 01/27/18 14:56 BP 114/59 01/27/18 14:56 Pulse Ox 96 01/27/18 14:56 Intake & Output 01/26/18 01/27/18 01/27/18 18:59 06:59 18:59 Intake Total 240 600 Balance 240 600 Intake: Oral 240 600 Other: # Voids 2 1 4 # Bowel Movements 0 - Exam PHYSICAL EXAMINATION: GENERAL: The patient is alert and oriented x3, not in any acute distress. Well developed, well nourished. HEENT: Pupils are round and equally reacting to light. EOMI. No scleral icterus. No conjunctival pallor. Normocephalic, atraumatic. No pharyngeal erythema. No thyromegaly. CARDIOVASCULAR: S1 and S2 present. No murmurs, rubs, or gallops. PULMONARY: Chest is clear to auscultation, no wheezing or crackles. ABDOMEN: Soft, nontender, nondistended, normoactive bowel sounds. No palpable organomegaly. MUSCULOSKELETAL: No joint swelling or deformity. EXTREMITIES: No cyanosis, clubbing, or pedal edema. NEUROLOGICAL: Gross neurological examination did not reveal any focal deficits. SKIN: Left leg cellulitis, just below the midshin area circumferential with incisions which looked clean. - Labs CBC & Chem 7: 01/25/18 08:41 01/27/18 08:10 Labs: Abnormal Lab Results - Last 24 Hours (Table) 01/27/18 Range/Units 08:10 Glucose 120 H (74-99) mg/dL Microbiology - Last 24 Hours (Table) 01/23/18 15:20 Anaerobic Culture - Final Leg - Left 01/22/18 11:45 Blood Culture - Preliminary Blood No Growth after 120 hours 01/22/18 09:27 Blood Culture - Preliminary Blood No Growth after 120 hours Assessment and Plan Plan: -Left leg multiple abscesses with cellulitis, emesis he and patient is on ceftezole and which will be continued at 10-cannot disease next and-COPD without any acute exacerbation -Hyperlipidemia -Essential hypertension next and-benign prostatic hypertrophic -Up to 2 sleep apnea on CPAP machine at home -Hypothyroidism -Anxiety and depression.
[2018-01-27] MEDS: ATORVASTATIN 80 MG TAB PO SCH (20:53)
[2018-01-27] MEDS: MONTELUKAST 10 MG TAB PO SCH (20:53)
--- NOTE | 2018-01-27 22:10 | PN ---
PROGRESS NOTE DATE OF SERVICE: January 27, 2018. REASON FOR FOLLOW UP: Left leg abscess and cellulitis MSSA. INTERVAL HISTORY: The patient is afebrile, he has been breathing comfortably. Denies having any chest pain. No shortness of breath or cough. No abdominal pain or any worsening pain in the flank area. PHYSICAL EXAMINATION: Blood pressure 114/59 with a pulse of 72, temperature 97.5. He is 98% on room air. General description is an elderly male lying in bed in no distress. Respiratory system: Unlabored breathing. Clear to auscultation anteriorly. Heart S1, S2. Regular rate and rhythm. Abdomen soft. No tenderness. Left leg swelling and decreased. No drainage. LABS: BUN of 20, creatinine 0.82. DIAGNOSTIC IMPRESSION AND PLAN: Patient with a left leg abscess, multiple status post drainage. Culture has been positive for MSSA. The patient is currently on cefazolin 2 g q.8h. Continue along with Aquacel silver packing of the wound. Hopefully finish therapy with oral antibiotics on Monday. Continue supportive care. MMODL / IJN: [id number] /
[2018-01-28] MEDS: NAPROXEN 250 MG TAB PO SCH ×2 (06:44→17:30)
[2018-01-28] MEDS: LEVOTHYROXINE 25 MCG TAB PO SCH (06:44)
[2018-01-28] MEDS: IPRATROPIUM-ALBUTEROL 3 ML NEB INHALATION SCH ×4 (07:44→18:54)
[2018-01-28] MEDS: TAMSULOSIN 0.4 MG CAP.ER.24H PO SCH (08:10)
[2018-01-28] MEDS: LISINOPRIL 10 MG TAB PO SCH (08:10)
[2018-01-28] MEDS: ASPIRIN 81 MG PO SCH (08:10)
[2018-01-28] MEDS: ENOXAPARIN 40 MG/0.4 ML SYRINGE SQ SCH (08:10)
[2018-01-28] MEDS: ceFAZolin IN SWFI 2 GM/20 ML SYRINGE IVP SCH ×3 (08:10→23:08)
[2018-01-28] MEDS: FUROSEMIDE 40 MG TAB PO SCH ×2 (08:10→15:22)
[2018-01-28] MEDS: EZETIMIBE 10 MG TAB PO SCH (08:10)
[2018-01-28] MEDS: DULoxetine HCL 60 MG CAPSULE.DR PO SCH ×2 (08:10→20:21)
[2018-01-28] MEDS: METOPROLOL TARTRATE 25 MG TAB PO SCH ×2 (08:10→20:21)
[2018-01-28] MEDS: POTASSIUM CHLORIDE ER 10 MEQ TAB.ER.PRT PO SCH (08:11)
[2018-01-28] MEDS: SILVER sulfADIAZINE Cream 400 GM 1 APPLIC APPLIC TOPICAL SCH ×2 (08:24→20:23)
[2018-01-28 08:29] LABS: Anion Gap 10 mmol/L; Blood Urea Nitrogen 21 mg/dL (9-20); Calcium 9.1 mg/dL (8.4-10.2); Carbon Dioxide 28 mmol/L (22-30); Chloride 102 mmol/L (98-107); Glucose 100 mg/dL (74-99); Potassium 4.7 mmol/L (3.5-5.1); Sodium 140 mmol/L (137-145)
--- NOTE | 2018-01-28 13:10 | P.PN ---
Subjective Patient is admitted for left lower limb multiple abscesses abscess drainage showed MSSA and infectious disease is recommending cefazolin IV for couple more days and discharge him home on oral antibiotics on Monday. 01/28/2018 No overnight events clinically doing well Constitutional: Denied any fatigue denied any fever. Cardio vascular: denied any chest pain, palpitations Gastrointestinal denied any nausea vomiting Pulmonary: Denied any shortness of breath cough Neurologic denied any new focal deficits Objective - Vital Signs Vital signs: Vital Signs Temp 97.8 F 01/28/18 05:30 Pulse 80 01/28/18 11:16 Resp 20 01/28/18 05:30 BP 106/70 01/28/18 05:30 Pulse Ox 96 01/28/18 05:30 Intake & Output 01/27/18 01/28/18 01/28/18 18:59 06:59 18:59 Intake Total 1200 400 Balance 1200 400 Intake: Oral 1200 400 Other: # Voids 1 1 - Exam PHYSICAL EXAMINATION: GENERAL: The patient is alert and oriented x3, not in any acute distress. Well developed, well nourished. HEENT: Pupils are round and equally reacting to light. EOMI. No scleral icterus. No conjunctival pallor. Normocephalic, atraumatic. No pharyngeal erythema. No thyromegaly. CARDIOVASCULAR: S1 and S2 present. No murmurs, rubs, or gallops. PULMONARY: Chest is clear to auscultation, no wheezing or crackles. ABDOMEN: Soft, nontender, nondistended, normoactive bowel sounds. No palpable organomegaly. MUSCULOSKELETAL: No joint swelling or deformity. EXTREMITIES: No cyanosis, clubbing, or pedal edema. NEUROLOGICAL: Gross neurological examination did not reveal any focal deficits. SKIN: Left leg cellulitis, just below the midshin area circumferential with incisions which looked clean. - Labs CBC & Chem 7: 01/25/18 08:41 01/28/18 07:28 Labs: Abnormal Lab Results - Last 24 Hours (Table) 01/28/18 Range/Units 07:28 BUN 21 H (9-20) mg/dL Glucose 100 H (74-99) mg/dL Microbiology - Last 24 Hours (Table) 01/22/18 09:27 Blood Culture - Final Blood No Growth after 144 hours 01/23/18 15:20 Anaerobic Culture - Final Leg - Left 01/22/18 11:45 Blood Culture - Preliminary Blood No Growth after 120 hours Assessment and Plan Plan: -Left leg multiple abscesses with cellulitis, emesis he and patient is on ceftezole and which will be continued at 10-cannot disease next and-COPD without any acute exacerbation -Hyperlipidemia -Essential hypertension next and-benign prostatic hypertrophic -Up to 2 sleep apnea on CPAP machine at home -Hypothyroidism -Anxiety and depression.
[2018-01-28] MEDS: MORPHINE SULFATE 2 MG/ML SYRINGE IVP PRN (14:41)
[2018-01-28] MEDS: MONTELUKAST 10 MG TAB PO SCH (20:21)
[2018-01-28] MEDS: ATORVASTATIN 80 MG TAB PO SCH (20:21)
[2018-01-28 23:14] VITALS: RESP 18
--- NOTE | 2018-01-28 23:20 | PN ---
PROGRESS NOTE DATE OF SERVICE: 01/28/2018. REASON FOR FOLLOWUP: Left leg abscess and cellulitis MSSA. INTERVAL HISTORY: The patient overall is feeling better. Breathing comfortably. Denies having any chest pain, shortness of breath or cough. No abdominal pain or any worsening pain in the left leg area. PHYSICAL EXAMINATION: Blood pressure 107/62 with a pulse of 81, temperature 98. He is 97% on room air. General description is an elderly male lying in bed in no distress. Respiratory system: Unlabored breathing. Clear to auscultation anteriorly. Heart S1, S2. Regular rate and rhythm. Abdomen soft. Left leg swelling and redness has decreased. No drainage. LABS: BUN of 21, creatinine 0.83. DIAGNOSTIC IMPRESSION AND PLAN: Patient with left leg abscess and cellulitis. The patient is status post drainage. Overall cellulitis has improved. Plan to finish therapy with p.o. Keflex 500 mg q.6 hours for 10 days. Local wound care with Aquacel Silver packing. Will follow up in the office in 1 week. Continue supportive care. Prescription was sent to the pharmacy. MMODL / AILYNN: [id number] /
[2018-01-29 06:20] VITALS: BP 118/68; TEMP 97.7
[2018-01-29] MEDS: LEVOTHYROXINE 25 MCG TAB PO SCH (06:22)
[2018-01-29] MEDS: NAPROXEN 250 MG TAB PO SCH (06:22)
[2018-01-29] MEDS: IPRATROPIUM-ALBUTEROL 3 ML NEB INHALATION SCH ×2 (07:27→12:15)
[2018-01-29 07:37] VITALS: PULSE 75
[2018-01-29] MEDS: ceFAZolin IN SWFI 2 GM/20 ML SYRINGE IVP SCH (08:55)
[2018-01-29] MEDS: TAMSULOSIN 0.4 MG CAP.ER.24H PO SCH (08:56)
[2018-01-29] MEDS: FUROSEMIDE 40 MG TAB PO SCH (08:56)
[2018-01-29] MEDS: ASPIRIN 81 MG PO SCH (08:56)
[2018-01-29] MEDS: ENOXAPARIN 40 MG/0.4 ML SYRINGE SQ SCH (08:56)
[2018-01-29] MEDS: EZETIMIBE 10 MG TAB PO SCH (08:56)
[2018-01-29] MEDS: METOPROLOL TARTRATE 25 MG TAB PO SCH (08:57)
[2018-01-29] MEDS: LISINOPRIL 10 MG TAB PO SCH (08:57)
[2018-01-29] MEDS: DULoxetine HCL 60 MG CAPSULE.DR PO SCH (08:57)
[2018-01-29] MEDS: POTASSIUM CHLORIDE ER 10 MEQ TAB.ER.PRT PO SCH (08:58)
[2018-01-29] MEDS: SILVER sulfADIAZINE Cream 400 GM 1 APPLIC APPLIC TOPICAL SCH (08:58)
[2018-01-29] MEDS: MORPHINE SULFATE 2 MG/ML SYRINGE IVP PRN (11:20)
--- NOTE | 2018-01-29 14:24 | PN ---
PROGRESS NOTE DATE OF SERVICE: 01/29/2018. REASON FOR FOLLOWUP: Left leg abscess, cellulitis and MSSA. INTERVAL HISTORY: The patient was seen on rounds this morning. The patient has been afebrile. He is breathing comfortably. Denies having any chest pain or shortness of breath, cough. No abdominal pain. Left leg pain has much improved. No diarrhea with antibiotic therapy. EXAMINATION: Blood pressure 118/68 with a pulse of 70. Temperature 97.7. He is 97% on room air. General description is an elderly male up in the bed in no distress. RESPIRATORY SYSTEM: Unlabored breathing. Clear to auscultation anteriorly. HEART: S1, S2. Regular rate and rhythm. ABDOMEN: Soft, no tenderness. Left leg overall swelling and redness has improved. No drainage. LABS: No new labs have been obtained today. DIAGNOSTIC IMPRESSION AND PLAN: Patient with a left leg abscess and cellulitis secondary to MSSA showing clinical improvement on Cefazolin. Antibiotic will transition to Keflex 500 mg p.o. q.6 hours for 10 days with close outpatient followup. Local wound care with Aquacel Silver packing. Continue supportive care. MMODL / IJN: [id number] /
--- NOTE | 2018-01-30 16:28 | P.DS ---
Providers Date of admission: 01/22/18 13:01 Attending physician: Manuel Snow Consults: 01/23/18 12:31 Consult Physician Routine Consulting Provider: Kavon Lindsay Consult Reason/Comments: cad Do you want consulting provider notified?: Yes 01/23/18 12:32 Consult Physician Routine Consulting Provider: Melquiades Burton Consult Reason/Comments: abscess for I and D Do you want consulting provider notified?: Yes Consult Physician Routine Consulting Provider: Erica Lopez Consult Reason/Comments: leg abscess Do you want consulting provider notified?: Yes Primary care physician: Gianni [facility] Course: Final Diagnoses: -Left leg abscess-multiple with cellulitis secondary to MSSA, status post I&D -COPD without any acute exacerbation -Hyperlipidemia -Essential hypertension next and-benign prostatic hypertrophic -Up to 2 sleep apnea on CPAP machine at home -Hypothyroidism -Anxiety and depression. Hospital course:Patient is admitted for left lower limb multiple abscesses. Abscess drainage showed MSSA. Maintained on IV antibiotics with oral antibiotics recommended at discharge. Left leg pain much improved-less pain with dressing changes reported. Significant clinical improvement.Case management arranging dressing change orders as per vascular surgery/ID with home care. cleared by both vascular surgery and infectious disease for discharge. Patient is being discharged home in a stable condition with guarded prognosis. EXAMINATION: GENERAL: The patient is alert and oriented x3, no acute distress. CARDIOVASCULAR: S1 and S2 present. No murmurs, rubs, or gallops. PULMONARY: Chest is clear to auscultation, no wheezing or crackles. ABDOMEN: Soft, nontender, nondistended, normoactive bowel sounds. NEUROLOGICAL: Gross neurological examination did not reveal any focal deficits. SKIN: Left leg cellulitis, redness, edema improved, no drainage. Microbiology 01/22/18 11:45 Blood Blood Culture - Final No Growth after 144 hours 01/22/18 09:27 Blood Blood Culture - Final No Growth after 144 hours 01/23/18 15:20 Leg - Left Anaerobic Culture - Final 01/23/18 15:20 Leg - Left Gram Stain - Final 01/23/18 15:20 Leg - Left Wound Culture - Final Staphylococcus aureus 01/22/18 09:27 Leg - Left Gram Stain - Final 01/22/18 09:27 Leg - Left Wound Culture - Final Staphylococcus aureus 01/22/18 10:23 Urine,Voided Urine Culture - Final The impression and plan of care has been dictated as directed. : I performed a history and examination of this patient, discussed the same with the dictator. I agree with the dictator's note ,documented as a scribe. Any additional findings or plans will be noted. Time taken: 35 minutes Patient Condition at Discharge: Stable Plan - Discharge Summary Discharge Rx Participant: Yes New Discharge Prescriptions: New Cephalexin [Keflex] 500 mg PO Q6HR #40 cap SILVER sulfADIAZINE Cream [Silvadene 1% Cream] 1 applic TOPICAL BID applic Furosemide [Lasix] 40 mg PO DAILY #1 tablet Continue Levothyroxine Sodium [Synthroid] 25 mcg PO DAILY Tamsulosin [Flomax] 0.4 mg PO DAILY Meloxicam 15 mg PO DAILY Lisinopril [Prinivil] 10 mg PO DAILY Montelukast [Singulair] 10 mg PO HS Atorvastatin [Lipitor] 80 mg PO HS Aspirin EC [Ecotrin Low Dose] 81 mg PO DAILY Metoprolol Tartrate [Lopressor] 25 mg PO BID Ezetimibe [Zetia] 10 mg PO DAILY DULoxetine HCL [Cymbalta] 60 mg PO BID Potassium Chloride [Klor-Con 10] 10 meq PO DAILY Discontinued Furosemide [Lasix] 40 mg PO DAILY Discharge Medication List Atorvastatin [Lipitor] 80 mg PO HS 05/03/16 [History] Levothyroxine Sodium [Synthroid] 25 mcg PO DAILY 05/03/16 [History] Lisinopril [Prinivil] 10 mg PO DAILY 05/03/16 [History] Meloxicam 15 mg PO DAILY 05/03/16 [History] Montelukast [Singulair] 10 mg PO HS 05/03/16 [History] Tamsulosin [Flomax] 0.4 mg PO DAILY 05/03/16 [History] Aspirin EC [Ecotrin Low Dose] 81 mg PO DAILY 11/30/17 [History] Metoprolol Tartrate [Lopressor] 25 mg PO BID 11/30/17 [History] DULoxetine HCL [Cymbalta] 60 mg PO BID 01/22/18 [History] Ezetimibe [Zetia] 10 mg PO DAILY 01/22/18 [History] Potassium Chloride [Klor-Con 10] 10 meq PO DAILY 01/22/18 [History] Cephalexin [Keflex] 500 mg PO Q6HR #40 cap 01/28/18 [Rx] Furosemide [Lasix] 40 mg PO DAILY #1 tablet 01/29/18 [Rx] SILVER sulfADIAZINE Cream [Silvadene 1% Cream] 1 applic TOPICAL BID applic [Rx] Follow up Appointment(s)/Referral(s): Kavon Lindsay MD [STAFF PHYSICIAN] - 02/12/18 1:15 pm Gianni Layne DO [Primary Care Provider] - 02/02/18 11:15 am [facility] [NON-[facility]FF] - 02/05/18 3:15 pm (with Dr Burton) Resident [place],[facility] [NON-STAFF] - Erica Lopez MD [STAFF PHYSICIAN] - 02/08/18 9:30 am Ambulatory/Diagnostic Orders: Complete Blood Count w/diff [LAB.AMB] Time Frame: 3 Days, Location: None Selected Patient Instructions/Handouts: Cellulitis (DC), Acute Wound Care (DC) Activity/Diet/Wound Care/Special Instructions: dressing change to left leg wound three times weekly: Aquacel AG to open wounds , apply silvadene to surrounding skin, wrap with dry gauze Cardiac diet Discharge Disposition: HOME WITH HOME HEALTH SERVICES
== END 2018-01-29 12:36 | disposition home health service (06) | DRG 580 ==
LOC: EC 08:55 → 4MS4W 13:01
PROVIDERS: ADMIT Hospitalist; ATTEND Hospitalist
PROC: 0J9P0ZZ Drainage of Left Lower Leg Subcutaneous Tissue and Fascia, Open Approach (ICD-10-PCS; principal; 2018-01-23)
PROC: 0J9P0ZZ Drainage of Left Lower Leg Subcutaneous Tissue and Fascia, Open Approach (ICD-10-PCS; 2018-01-24)
DX: L02.416 Cutaneous abscess of left lower limb (principal); J44.1 Chronic obstructive pulmonary disease with (acute) exacerbation; Z68.41 Body mass index [BMI] 40.0-44.9, adult; E66.01 Morbid (severe) obesity due to excess calories; B95.61 Methicillin susceptible Staphylococcus aureus infection as the cause of diseases classified elsewhere; E03.9 Hypothyroidism, unspecified; E11.9 Type 2 diabetes mellitus without complications; E78.5 Hyperlipidemia, unspecified; F32.9 Major depressive disorder, single episode, unspecified; F41.9 Anxiety disorder, unspecified; G47.33 Obstructive sleep apnea (adult) (pediatric); I10 Essential (primary) hypertension; I25.10 Atherosclerotic heart disease of native coronary artery without angina pectoris; I35.8 Other nonrheumatic aortic valve disorders; I45.10 Unspecified right bundle-branch block; L03.116 Cellulitis of left lower limb; M13.0 Polyarthritis, unspecified; N40.0 Benign prostatic hyperplasia without lower urinary tract symptoms; T63.441A Toxic effect of venom of bees, accidental (unintentional), initial encounter; Z95.5 Presence of coronary angioplasty implant and graft; Z87.891 Personal history of nicotine dependence; Z86.14 Personal history of Methicillin resistant Staphylococcus aureus infection; Z79.82 Long term (current) use of aspirin; Z79.899 Other long term (current) drug therapy; Z80.3 Family history of malignant neoplasm of breast
CPT/HCPCS: 36415; 71046; 80048; 80053; 80202; 81003; 83605; 83880; 84484; 85025; 85610; 85730; 87040; 87070; 87075; 87077; 87086; 87186; 87205; 93005; 93306; 94640; 94760; 96365; 96375; 96376; 99285

== ENCOUNTER 2018-02-09 12:24 | Day surgery (SDC) | payer MEDICARE ==
[2018-02-09] MEDS ORDERED: ALPRAZolam 0.25 MG TAB PO STA (12:54)
[2018-02-09 12:57] VITALS: RESP 18; TEMP 98
[2018-02-09 15:11] VITALS: BP 123/69; PULSE 65
--- NOTE | 2018-02-09 16:21 | US ---
EXAMINATION TYPE: US FNA thyroid DATE OF EXAM: 02/09/2018 COMPARISON: NONE HISTORY: Thyroid nodule. Maximal barrier technique was utilized. After informed consent, skin overlying the lesion was locali zed with ultrasound and the overlying skin prepped and draped. Ultrasound was utilized using sterile technique. Lidocaine was used for local anesthesia. Five passes with a 25-gauge needle were made int o the nodule and aspirated specimen was submitted to cytology. Following the procedure hemostasis ac hieved. No immediate complication. The patient discharged in stable condition. IMPRESSION: STATUS POST ULTRASOUND GUIDED FINE NEEDLE ASPIRATION OF LEFT LOWER POLE THYROID NODULE, P ATHOLOGY IS PENDING. THIS PROCEDURE WAS PERFORMED BY THE UNDERSIGNED.
== END 2018-02-09 14:20 | disposition home or self-care (01) ==
LOC: RADPROMAIN 12:24
PROVIDERS: ATTEND Internal Medicine Endocrinology, Diabetes & Metabolism
DX: E04.1 Nontoxic single thyroid nodule (principal); Z80.8 Family history of malignant neoplasm of other organs or systems
CPT/HCPCS: 10022; 76942; 88173; 88305

== ENCOUNTER → 2018-07-11 | Outpatient (CLI) | payer MEDICARE ==
[2018-07-11 10:54] LABS: HCT 40.6 % (39.0-53.0); HGB 13.3 gm/dL (13.0-17.5); MCH 30.7 pg (25.0-35.0); MCHC 32.9 g/dL (31.0-37.0); MCV 93.4 fL (80.0-100.0); Mean Platelet Volume 6.5; Platelet Count 263 k/uL (150-450); RBC 4.34 m/uL (4.30-5.90); RDW 14.7 % (11.5-15.5); WBC 5.8 k/uL (3.8-10.6)
[2018-07-11 11:05] LABS: Potassium 4.5 mmol/L (3.5-5.1)
== END ==
LOC: LABPAT 09:41
PROVIDERS: ATTEND Internal Medicine Interventional Cardiology
DX: Z01.812 Encounter for preprocedural laboratory examination (principal); I10 Essential (primary) hypertension; I25.10 Atherosclerotic heart disease of native coronary artery without angina pectoris; R06.09 Other forms of dyspnea
CPT/HCPCS: 36415; 80051; 82565; 84520; 85027

== ENCOUNTER → 2018-07-16 | Day surgery (SDC) | payer MEDICARE ==
[2018-07-11 08:55] VITALS: BMI 38.5
[~2018-07-16] MED LIST: ALPRAZolam 0.25 MG TAB PO PRN; ALPRAZolam 0.5 MG TAB PO PRN; ASPIRIN 325 MG TAB PO STA; ATORVASTATIN 80 MG TAB PO STA; HEPARIN SODIUM 1,000 UN/ML (10ML VL) IV ONE; HEPARIN SODIUM 1,000 UN/ML (10ML VL) ONE; IOPAMIDOL-370 150ML BTL INJ ONE; LIDOCAINE 1% INJ 10MG/ML (20 ML MDV) ONE; LIDOCAINE 1% INJ 10MG/ML (20 ML MDV) SQ ONE; MIDAZOLAM 2 MG/2 ML VIAL IV ONE; NITROGLYCERIN SL TABS 0.4 MG TAB SUBLINGUAL PRN; RX INFO: IV CONTRAST WAS GIVEN 1 EACH MISC MISCELLANE PRN; SODIUM CHLORIDE 0.9% 1,000 ML IV SCH; SODIUM CHLORIDE 0.9% 1,000 ML in EMPTY BAG 1 BAG IV ONE; VERAPAMIL 2.5 MG/ML 2 ML AMP ONE; VERAPAMIL SYRINGE (5 MG/10 ML) INTRAARTER ONE
[2018-07-16 07:04] VITALS: TEMP 97.9
--- NOTE | 2018-07-16 08:35 | LTR ---
DATE OF SERVICE: 07/16/2018 RE: AleaBeny Dear Dr. Layne; Mr. Beny Cosby underwent today a heart catheterization and that revealed intermediate 2-vessel coronary artery disease involving the mid right coronary artery and mid left anterior descending artery. Maximize medical treatment was advised along with aggressive cholesterol control. I want to thank you again for allowing me to participate in his care and please do not hesitate to call if you have any question or concerns. Sincerely, MD SANDRA Parish / AILYNN: [phone] /
--- NOTE | 2018-07-16 08:44 | CC ---
CARDIAC CATHETERIZATION REPORT DATE OF SERVICE: 07/16/2018 PERFORMING PHYSICIAN: Kavon Lindsay MD, Feather Drying Machine Operator. PROCEDURE PERFORMED: 1. Selective right and left coronary angiogram. 2. Left heart catheterization. INDICATION: This is a pleasant 67-year-old gentleman with history of coronary artery disease and prior stenting of the LAD as well as hypertension and dyslipidemia, was experiencing symptoms of shortness of breath with exertion as well as chest discomfort with exertion concerning for angina. Because of that, a heart catheterization was advised. APPROACH: Right radial artery. COMPLICATION: None. LEVEL OF SEDATION: Moderate with sedation length of 15 minutes. PROCEDURE DESCRIPTION: After obtaining an informed consent, the patient was brought to the cardiac equipment operator/laborer. The right radial artery was cannulated using micropuncture technique, the micropuncture wire passed easily, then I placed a 6-Lao sheath in the right radial artery. After that, I gave the patient 2 mg of verapamil IA and 10,000 units of heparin IV. After that, I did selective right and left coronary angiogram using JR4 and JL3.5 catheters. Left heart catheterization was performed using the JR4 catheter which flipped crossed the aortic valve. Then I did pullback across the aortic valve. The procedure was completed without any complication. SELECTIVE CORONARY ANGIOGRAM: 1. The right coronary artery is a medium caliber vessel and a codominant vessel. The mid RCA has a lesion, appeared to be in the range of 50%. 2. The left main is a large caliber vessel and seems to be angiographically normal. It bifurcates into left circumflex, ramus intermedius, and left anterior descending artery. 3. The circumflex is a large caliber vessel. It is a codominant vessel. The proximal circumflex has mild disease only. The mid circumflex appeared to be normal and gives rise into a large OM branch which appeared to be normal. The circumflex distally appeared to be normal and bifurcates into PDA and PLV branches, appeared to be angiographically normal. 4. The ramus intermedius is a medium caliber vessel and seems to be angiographically normal. 5. The LAD, the proximal LAD is stented and the stent is patent. The mid LAD has a lesion, appeared to be in the range of 50%. It's lesion is on hinge point. The LAD distally appeared to be normal. HEMODYNAMICS: The left ventricular hemodynamics, the left ventricular end-diastolic pressure was 12 mmHg without significant gradient across the aortic valve. CONCLUSION: Intermediate disease involving the mid right coronary artery as well as mid left anterior descendnig artery. POSTPROCEDURE MANAGEMENT: 1. Maximize medical treatment. 2. Aggressive cholesterol control. 3. Follow up with the patient. SANDRA / MAYANK: [phone] /
[2018-07-16 10:11] VITALS: BP 114/82; PULSE 59; RESP 18
== END ==
LOC: CATHCVL 06:35
PROVIDERS: ATTEND Internal Medicine Interventional Cardiology
DX: I25.110 Atherosclerotic heart disease of native coronary artery with unstable angina pectoris (principal); I10 Essential (primary) hypertension; Z72.0 Tobacco use; Z95.5 Presence of coronary angioplasty implant and graft; E78.5 Hyperlipidemia, unspecified; Z79.82 Long term (current) use of aspirin; Z79.890 Hormone replacement therapy; Z79.51 Long term (current) use of inhaled steroids
CPT/HCPCS: 93458; C1894; J2250; J2001; J1644; Q9967

== ENCOUNTER → 2018-09-24 | Outpatient (CLI) | payer MEDICARE ==
[2018-09-24 16:10] LABS: T4, Free (Free Thyroxine) 1.2 ng/dL (0.80-1.80)
== END ==
LOC: LABWHC1 10:19
PROVIDERS: ATTEND Internal Medicine Endocrinology, Diabetes & Metabolism
DX: E04.1 Nontoxic single thyroid nodule (principal)
CPT/HCPCS: 36415; 84439; 84443

== ENCOUNTER → 2019-03-29 | Outpatient (CLI) | payer MEDICARE | END | disposition home or self-care (01) | LOC: LABWHC1 09:26 | PROVIDERS: ATTEND Internal Medicine Endocrinology, Diabetes & Metabolism | DX: E03.8 Other specified hypothyroidism (principal) | CPT/HCPCS: 36415; 84443 ==

== ENCOUNTER → 2019-04-02 | Outpatient (CLI) | payer MEDICARE ==
--- NOTE | 2019-04-02 21:34 | US ---
EXAMINATION TYPE: US thyroid st tissue head/neck DATE OF EXAM: 04/02/2019 COMPARISON: CT neck November 30, 2017 CLINICAL HISTORY: NON TOXIC SINGLE THYROID NODE E04.1. Thyroid nodules. GLAND SIZE: Right Lobe: 4.7 x 2.5 x 2.5 cm Overall Parenchyma: heterogenous Left Lobe: 4.1 x 2.4 x 2.1 cm Overall Parenchyma: heterogeneous Isthmus Thickness: .3 cm NODULES RIGHT: # of nodules measured on right: 1 1. 2.2 X 2.4 x 2.1 cm isoechoic solid nodule at the lower pole with poorly defined margins. This n odule is wider than tall and shows intranodular vascularity. Prior size No prior LEFT: # of nodules measured on left: 1 1. 2.8 X 1.5 x 2.3 cm hypoechoic solid nodule at the mid pole with poorly defined margins. This no dule is wider than tall and shows no significant vascularity.. Prior size No prior ISTHMUS: # of nodules measured in the isthmus: 0 Bilateral neck scanned, no evidence of lymphadenopathy. IMPRESSION: Suspicious bilateral thyroid nodules felt slightly enlarged from 2018 CT.
== END | disposition home or self-care (01) ==
LOC: RADUSMAIN 15:48
PROVIDERS: ATTEND Internal Medicine Endocrinology, Diabetes & Metabolism
DX: E04.9 Nontoxic goiter, unspecified (principal)
CPT/HCPCS: 76536

== ENCOUNTER → 2019-04-18 | Outpatient (CLI) | payer MEDICARE ==
--- NOTE | 2019-04-18 11:45 | XR ---
EXAMINATION TYPE: XR lumbar spine 2 or 3V DATE OF EXAM: 04/18/2019 COMPARISON: None HISTORY: Low back pain TECHNIQUE: Lumbar spine is examined in 3 projections. FINDINGS: Mild retrolisthesis of L2 on L3 is present. Some intimal retrolisthesis of L3 on L4 is pres ent. There is loss of disc height throughout the lumbar spine. Vertebral body heights are preserved. Vascular calcification is within the aorta. There 5 lumbar-type vertebral bodies. Pedicles are intact. IMPRESSION: 1. Degenerative disc changes throughout the lumbar spine. 2. Mild Retrolisthesis of L2 on L3 and L3 on L4.
== END | disposition home or self-care (01) ==
LOC: RADXRMAIN 10:53
PROVIDERS: ATTEND Family Medicine
DX: M43.16 Spondylolisthesis, lumbar region (principal); M47.816 Spondylosis without myelopathy or radiculopathy, lumbar region
CPT/HCPCS: 72100

== ENCOUNTER 2019-11-12 10:28 | Observation (INO) | payer MEDICARE ==
[2019-11-12] MEDS ORDERED: cefTRIAXone IN SWFI 1,000 MG/10 ML SYRINGE IVP STA (10:59)
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
[2019-11-12 11:44] LABS: Basophils % (A) 1 %; Eosinophils # (A) 0.2 k/uL (0-0.7); Eosinophils % (A) 4 %; HCT 40.2 % (39.0-53.0); HGB 13.7 gm/dL (13.0-17.5); Lymphocytes # (A) 1.4 k/uL (1.0-4.8); Lymphocytes % (A) 24 %; MCH 30.7 pg (25.0-35.0); MCHC 34.1 g/dL (31.0-37.0); Mean Platelet Volume 7.4; Monocytes # (A) 0.6 k/uL (0-1.0); Monocytes % (A) 11 %; Neutrophils # (A) 3.4 k/uL (1.3-7.7); Neutrophils % (A) 58 %; Platelet Count 263 k/uL (150-450); RBC 4.46 m/uL (4.30-5.90); RDW 14.4 % (11.5-15.5)
--- NOTE | 2019-11-12 11:47 | XR ---
EXAMINATION TYPE: XR chest 2V DATE OF EXAM: 11/12/2019 COMPARISON: 01/22/2018 and 05/31/2018 HISTORY: 69-year-old male exertion all dyspnea, shortness of breath TECHNIQUE: PA and lateral views FINDINGS: Heart mildly enlarged. Mild interstitial prominence is unchanged. Some strandy atelectasis in the low er lungs. No consolidation or pleural effusion. Old healed right-sided rib fracture deformity. IMPRESSION: Mild cardiomegaly is stable. Chronic appearing changes. No definite acute process.
[2019-11-12 11:48] LABS: INR 0.9 (<1.2); Prothrombin Time 9.7 sec (9.0-12.0)
[2019-11-12 11:49] LABS: Partial Thromboplastin Time 26.7 sec (22.0-30.0)
[2019-11-12 11:50] LABS: ALT 20 U/L (4-49); AST 21 U/L (17-59); African American GFR (CKD) >90 (>60 ml/min/1.73 sqM); Albumin 4.1 g/dL (3.5-5.0); Alkaline Phosphatase 85 U/L (38-126); Anion Gap 9 mmol/L; Blood Urea Nitrogen 20 mg/dL (9-20); Calcium 9.4 mg/dL (8.4-10.2); Carbon Dioxide 23 mmol/L (22-30); Chloride 103 mmol/L (98-107); Glucose 111 mg/dL (74-99); Magnesium 2.1 mg/dL (1.6-2.3); Non-African American GFR(CKD) 88 (>60 ml/min/1.73 sqM); Potassium 4.5 mmol/L (3.5-5.1); Sodium 135 mmol/L (137-145); Total Bilirubin 0.5 mg/dL (0.2-1.3); Total Protein 7.1 g/dL (6.3-8.2)
[2019-11-12] MEDS ORDERED: NITROGLYCERIN SL TABS 0.4 MG TAB SUBLINGUAL PRN (13:24)
[2019-11-12] MEDS ORDERED: ASPIRIN 81 MG PO STA (13:24)
[2019-11-12] MEDS ORDERED: ALBUTEROL NEBULIZED 2.5 MG/3 ML INHALATION PRN (20:50)
[2019-11-12] MEDS ORDERED: MONTELUKAST 10 MG TAB PO SCH (21:00)
[2019-11-12] MEDS ORDERED: ATORVASTATIN 80 MG TAB PO SCH (21:00)
[2019-11-12] MEDS: METOPROLOL TARTRATE 25 MG TAB PO SCH (21:53)
[2019-11-13] MEDS: CLINDAMYCIN 600 MG in DEXTROSE 5% IN WATER 50 ML IVPB SCH ×6 (00:03→11:48)
[2019-11-13 01:43] LABS: Cholesterol 189 mg/dL (<200); HDL Cholesterol 42 mg/dL (40-60); LDL Cholesterol,Calculated 113 mg/dL (0-99); Triglycerides 169 mg/dL (<150)
[2019-11-13] MEDS ORDERED: LEVOTHYROXINE 25 MCG TAB PO SCH (06:30)
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
[2019-11-13 07:53] VITALS: BP 117/69; RESP 16
[2019-11-13] MEDS ORDERED: NON FORMULARY DRUG (Umeclidinium Bromide [Incruse Ellipta] 1 PUFF) INHALATION SCH (08:00)
[2019-11-13] MEDS ORDERED: IPRATROPIUM-ALBUTEROL 3 ML NEB INHALATION SCH (08:00)
[2019-11-13] MEDS ORDERED: TAMSULOSIN 0.4 MG CAP.ER.24H PO SCH (09:00)
[2019-11-13] MEDS ORDERED: FUROSEMIDE 40 MG TAB PO SCH (09:00)
[2019-11-13] MEDS ORDERED: MELOXICAM 7.5 MG TAB PO SCH (09:00)
[2019-11-13] MEDS ORDERED: LISINOPRIL 10 MG TAB PO SCH (09:00)
[2019-11-13] MEDS ORDERED: POTASSIUM CHLORIDE ER 10 MEQ TAB.ER.PRT PO SCH (09:00)
[2019-11-13] MEDS ORDERED: FLUoxetine HCL 20 MG CAP PO SCH (09:00)
[2019-11-13] MEDS ORDERED: ERGOCALCIFEROL 50,000 UNIT CAP PO SCH (09:00)
[2019-11-13] MEDS ORDERED: ASPIRIN 325 MG TAB PO SCH (09:00)
[2019-11-13 09:24] VITALS: TEMP 97.7
--- NOTE | 2019-11-13 11:35 | CT ---
EXAMINATION TYPE: CT angio chest DATE OF EXAM: 11/13/2019 COMPARISON: Chest x-ray 11/12/2019 HISTORY: elevated d dimer CT DLP: 825.3 mGycm Automated exposure control for dose reduction was used. CONTRAST: CTA scan of the thorax is performed with IV Contrast, patient injected with 100 mL of Isovue 370, pul monary embolism protocol. MIP images are created and reviewed. 3D reconstructed images are created on an independent workstation and reviewed. FINDINGS: LUNGS: The lungs are grossly clear, there is no concerning parenchymal mass or nodule identified. T here is no pleural effusion or pneumothorax seen. The tracheobronchial tree is patent. AORTA: No additional significant abnormality is seen. MEDIASTINUM: There is satisfactory enhancement of the central pulmonary arteries, poor enhancement of its branches. There are no greater than 1 cm hilar or mediastinal lymph nodes. No pericardial eff usion is seen. There are coronary calcifications. OTHER: No additional significant abnormality is seen. IMPRESSION: EXAM IS LIMITED TO EXCLUDE SEGMENTAL PULMONARY EMBOLISM. CORONARY ARTERY DISEASE.
[2019-11-13] MEDS: METOPROLOL TARTRATE 25 MG TAB PO SCH (11:47)
[2019-11-13 12:14] VITALS: PULSE 63
--- NOTE | 2019-11-13 13:53 | ECHOF ---
Referral Reason: MEASUREMENTS -------- HEIGHT: 188.0 cm WEIGHT: 140.6 kg BP: 117/69 RVIDd: 3.5 cm (< 3.3) IVSd: 1.4 cm (0.6 - 1.1) LVIDd: 5.4 cm (3.9 - 5.3) LVPWd: 1.5 cm (0.6 - 1.1) IVSs: 2.2 cm LVIDs: 3.6 cm LVPWs: 2.2 cm LA Diam: 4.0 cm (2.7 - 3.8) LAESV Index (A-L): 28.34 ml/m Ao Diam: 3.7 cm (2.0 - 3.7) AV Cusp: 2.1 cm (1.5 - 2.6) MV EXCURSION: 12.495 mm (> 18.000) MV EF SLOPE: 85 mm/s (70 - 150) EPSS: 1.1 cm MV E Michael: 1.13 m/s MV DecT: 285 ms MV A Michael: 0.95 m/s MV E/A Ratio: 1.19 RAP: 5.00 mmHg RVSP: 30.88 mmHg FINDINGS -------- Sinus rhythm. This was a technically adequate study. The left ventricular size is normal. There is moderate concentric left ventricular hypertrophy. O verall left ventricular systolic function is normal with, an EF between 60 - 65 %. The right ventricle is mildly enlarged. Normal LA size by volume 22+/-6 ml/m2. The right atrium is normal in size. Interatrial and interventricular septum intact. Aortic valve is trileaflet and is mildly thickened. The mitral valve leaflets are mildly thickened. There is trace mitral regurgitation. Mild tricuspid regurgitation present. Right ventricular systolic pressure is normal at < 35 mmHg. The pulmonic valve was not well visualized. The aortic root size is normal. Normal inferior vena cava with normal inspiratory collapse consistent with estimated right atrial pre ssure of 5 mmHg. There is a small, generalized pericardial effusion present. CONCLUSIONS -------- 1. Sinus rhythm. 2. This was a technically adequate study. 3. The left ventricular size is normal. 4. There is moderate concentric left ventricular hypertrophy. 5. Overall left ventricular systolic function is normal with, an EF between 60 - 65 %. 6. The right ventricle is mildly enlarged. 7. Normal LA size by volume 22+/-6 ml/m2. 8. The right atrium is normal in size. 9. Interatrial and interventricular septum intact. 10. Aortic valve is trileaflet and is mildly thickened. 11. The mitral valve leaflets are mildly thickened. 12. There is trace mitral regurgitation. 13. Mild tricuspid regurgitation present. 14. Right ventricular systolic pressure is normal at < 35 mmHg. 15. The pulmonic valve was not well visualized. 16. The aortic root size is normal. 17. Normal inferior vena cava with normal inspiratory collapse consistent with estimated right atrial pressure of 5 mmHg. 18. There is a small, generalized pericardial effusion present. LAB TECHNOLOGIST: Ester Sood RDCS
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
--- NOTE | 2019-11-13 23:16 | P.DS ---
Providers Date of admission: 11/12/19 13:24 Expected date of discharge: 11/13/19 Attending physician: Manuel Snow Consults: 11/12/19 13:24 Consult Physician Urgent Consulting Provider: Kavon Lindsay Consult Reason/Comments: exertional dyspnea Do you want consulting provider notified?: Yes Primary care physician: Gianni Layne [facility] Course: Chief Complaint: Short of breath History of presenting complaint: This is a pleasant 69-year-old patient of Dr. Pat Layne. Chronic stable medical conditions include coronary artery disease, hyperlipidemia, hypertension, osteoarthritis, BPH, obstructive sleep apnea uses CPAP machine,. Patient has known coronary artery disease with a stent placement over 5 years ago. Patient thinks she's had follow-up stress test done. Patient now presents with getting short of breath with activity. 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 Denies any chest pain. No cough. No fever no chills. No edema. In the last few weeks patient has been about 10 pounds. No obvious wheezing. He does feel slightly deconditioned. Was admitted to rule out a cardiac cause. Chest CT was negative for PE. Troponins were negative. 2-D echocardiogram was unremarkable. Seen by Dr. Sotomayor. Cleared. Patient advised about weight loss. Symptoms were felt to be from deconditioning. Consultation: Dr. Sotomayor from cardiology Physical examination: VITAL SIGNS: 97.7, 65, 16, 117/69, 97% GENERAL: BMI 39.9, sitting up in bed, not in distress. EYES: Pupils equal. Conjunctiva normal. HEENT: External appearance of nose and ears normal, oral cavity grossly normal. NECK: JVD not raised; masses not palpable. HEART: First and second heart sounds are normal; no edema. LUNGS: Respiratory rate increased, decreased breath sounds. ABDOMEN: Soft, nontender, liver spleen not palpable, no masses palpable. PSYCH: Alert and oriented x3; mood and affect normal. INVESTIGATIONS, reviewed in the clinical context: White count 6 hemoglobin 13.7 platelets is 263 potassium 4.5 creatinine 0.45 Troponin I 3 negative LDL 113 COVID 19 PCR-not detected EKG tracing personally reviewed by me-no sinus rhythm and complete right bundle- branch block Chest x-ray film personally reviewed by me-possible chronic parenchymal changes CT scan of the chest-negative for PE 2-D echocardiogram-EF 60-65% Assessment: -Patient presents with shortness of breath with activity. No chest pain. Troponins are negative. Patient is put on about 10 pounds in the last few weeks. Symptoms seem to be more from deconditioning. -Obesity BMI 39.9 -Coronary artery disease with prior history of stent -COPD in an ex-smoker -Hyperlipidemia -Essential hypertension -Primary osteoarthritis -BPH -Obstructive sleep apnea uses CPAP -Hypothyroid Disposition: Home Patient Condition at Discharge: Stable Plan - Discharge Summary New Discharge Prescriptions: Continue Levothyroxine Sodium [Synthroid] 25 mcg PO DAILY Tamsulosin [Flomax] 0.4 mg PO DAILY Meloxicam 15 mg PO DAILY Lisinopril [Prinivil] 10 mg PO DAILY Montelukast [Singulair] 10 mg PO HS Atorvastatin [Lipitor] 80 mg PO HS Aspirin EC [Ecotrin Low Dose] 81 mg PO DAILY Metoprolol Tartrate [Lopressor] 25 mg PO BID Potassium Chloride [Klor-Con 10] 10 meq PO DAILY Furosemide [Lasix] 40 mg PO DAILY #1 tablet FLUoxetine HCL [PROzac] 20 mg PO DAILY Ergocalciferol (Vitamin D2) [Vitamin D2] 50,000 unit PO WE Albuterol Sulfate [Albuterol Sulfate Hfa] 1 puff PO RT-Q4H PRN PRN Reason: Shortness Of Breath Umeclidinium [place] [Incruse Ellipta] 1 puff INHALATION RT-DAILY Sulfamethoxazole/Trimethoprim [Bactrim DS 800-160 mg] 1 tab PO BID Ipratropium-Albuterol Nebulize [Duoneb 0.5 mg-3 mg/3 ml Soln] 3 ml INHALATION RT-BID Discharge Medication List Atorvastatin [Lipitor] 80 mg PO HS 05/03/16 [History] Levothyroxine Sodium [Synthroid] 25 mcg PO DAILY 05/03/16 [History] Lisinopril [Prinivil] 10 mg PO DAILY 05/03/16 [History] Meloxicam 15 mg PO DAILY 05/03/16 [History] Montelukast [Singulair] 10 mg PO HS 05/03/16 [History] Tamsulosin [Flomax] 0.4 mg PO DAILY 05/03/16 [History] Aspirin EC [Ecotrin Low Dose] 81 mg PO DAILY 11/30/17 [History] Metoprolol Tartrate [Lopressor] 25 mg PO BID 11/30/17 [History] Potassium Chloride [Klor-Con 10] 10 meq PO DAILY 01/22/18 [History] Furosemide [Lasix] 40 mg PO DAILY #1 tablet 01/29/18 [Rx] Ergocalciferol (Vitamin D2) [Vitamin D2] 50,000 unit PO WE 07/11/18 [History] FLUoxetine HCL [PROzac] 20 mg PO DAILY 07/11/18 [History] Albuterol Sulfate [Albuterol Sulfate Hfa] 1 puff PO RT-Q4H PRN 11/12/19 [History] Ipratropium-Albuterol Nebulize [Duoneb 0.5 mg-3 mg/3 ml Soln] 3 ml INHALATION R T-BID 11/12/19 [History] Sulfamethoxazole/Trimethoprim [Bactrim DS 800-160 mg] 1 tab PO BID 11/12/19 [History] Umeclidinium [place] [Incruse Ellipta] 1 puff INHALATION RT-DAILY 11/12/19 [History] Follow up Appointment(s)/Referral(s): Kavon Lindsay MD [STAFF PHYSICIAN] - 11/26/19 9:30 am (Follow up with LUCAS Mehta as scheduled for you) Gianni Layne DO [Primary Care Provider] - 1-2 days Discharge Disposition: HOME SELF-CARE
== END 2019-11-13 14:00 | disposition home or self-care (01) ==
LOC: EC 10:28 → 1SOBS 13:24
PROVIDERS: ADMIT Hospitalist; ATTEND Hospitalist
DX: R06.02 Shortness of breath (principal); R06.09 Other forms of dyspnea; R68.89 Other general symptoms and signs; H60.91 Unspecified otitis externa, right ear; I25.10 Atherosclerotic heart disease of native coronary artery without angina pectoris; J44.9 Chronic obstructive pulmonary disease, unspecified; E78.5 Hyperlipidemia, unspecified; I10 Essential (primary) hypertension; M19.91 Primary osteoarthritis, unspecified site; N40.0 Benign prostatic hyperplasia without lower urinary tract symptoms; R00.1 Bradycardia, unspecified; G47.33 Obstructive sleep apnea (adult) (pediatric); E03.9 Hypothyroidism, unspecified; M10.9 Gout, unspecified; F41.9 Anxiety disorder, unspecified; F32.9 Major depressive disorder, single episode, unspecified; E66.9 Obesity, unspecified; Z68.39 Body mass index [BMI] 39.0-39.9, adult; Z03.818 Encounter for observation for suspected exposure to other biological agents ruled out; Z95.5 Presence of coronary angioplasty implant and graft; Z79.899 Other long term (current) drug therapy; Z79.890 Hormone replacement therapy; Z79.1 Long term (current) use of non-steroidal anti-inflammatories (NSAID); Z79.82 Long term (current) use of aspirin; Z99.89 Dependence on other enabling machines and devices; Z87.2 Personal history of diseases of the skin and subcutaneous tissue; Z87.828 Personal history of other (healed) physical injury and trauma; Z86.14 Personal history of Methicillin resistant Staphylococcus aureus infection; Z98.890 Other specified postprocedural states; Z87.81 Personal history of (healed) traumatic fracture; Z87.898 Personal history of other specified conditions; Z87.891 Personal history of nicotine dependence; Z80.9 Family history of malignant neoplasm, unspecified; Z82.49 Family history of ischemic heart disease and other diseases of the circulatory system
CPT/HCPCS: 93005 ×2; 96365; 96366; 96375; 99285; 36415; 94640 ×2; 85379; 83880; 80061; 80053; 83605; 83735; 84484; 85025; 85610; 85730; 71046; 71275; G0378 ×2; C8929; U0003; J0696; Q9950; Q9967; 93306

== ENCOUNTER → 2020-05-29 | Outpatient (CLI) | payer MEDICARE ==
--- NOTE | 2020-05-29 10:09 | XR ---
EXAMINATION TYPE: XR Hip LT and AP Pelvis DATE OF EXAM: 05/29/2020 COMPARISON: NONE HISTORY: Pelvic and left hip pain for a few days. TECHNIQUE: A single AP view of the pelvis is obtained. Two views of the left hip are obtained. FINDINGS: There is no acute fracture/dislocation evident in the pelvis. The sacroiliac joints appear symmetric and within normal limits. Severe superior joint space loss left hip with [id number] for mation. Moderate head neck collar spurring. More mild to moderate superior joint space loss in the ri ght hip with mild acetabular spurring. Vascular calcification and phleboliths overlie the bilateral p kendall. Two views of left hip show no acute fracture or dislocation. No focal lytic or sclerotic lesion seen in the proximal left femur. Joint space sclerosis and subchondral cystic changes present. There is beginning loss of spherical shape to the left femoral head noted. The overlying soft tissue is unrema rkable. IMPRESSION: As above. Asymmetric more prominent advanced degenerative change left hip is noted.
== END | disposition home or self-care (01) ==
LOC: RADXRMAIN 09:46
PROVIDERS: ATTEND Nurse Practitioner Family
DX: M16.11 Unilateral primary osteoarthritis, right hip (principal); I87.8 Other specified disorders of veins
CPT/HCPCS: 73502

== ENCOUNTER 2020-06-11 13:20 | Emergency (ER) | payer MEDICARE ==
[2020-06-11 13:27] VITALS: RESP 18; TEMP 98.1
[2020-06-11] MEDS ORDERED: KETOROLAC 15 MG/ML 1 ML VIAL IM STA (13:44)
--- NOTE | 2020-06-11 14:27 | XR ---
EXAMINATION TYPE: XR tibia fibula LT DATE OF EXAM: 06/11/2020 COMPARISON: None HISTORY: Pain above incision site, swelling TECHNIQUE: 2 view left tibia and fibula FINDINGS: Knee and ankle joint spaces appear preserved. No acute fracture or dislocation is evident. Soft tissues are unremarkable. Follow-up exam can be performed 7-10 days from acute trauma for contin ued pain IMPRESSION: 1. Normal 2 view left tibia and fibula.
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
--- NOTE | 2020-06-11 14:58 | US ---
EXAMINATION TYPE: US venous doppler duplex LE LT DATE OF EXAM: 06/11/2020 1:45 PM COMPARISON: NONE CLINICAL HISTORY: pain. Edema SIDE PERFORMED: Left TECHNIQUE: The lower extremity deep venous system is examined utilizing real time linear array sonog cheyanne with graded compression, doppler sonography and color-flow sonography. VESSELS IMAGED: Common Femoral Vein Deep Femoral Vein Greater Saphenous Vein * Femoral Vein Popliteal Vein Small Saphenous Vein * Proximal Calf Veins (* superficial vessels) Left Leg: Negative for DVT IMPRESSION: 1. Left lower extremity ultrasound negative for deep venous thrombosis.
[2020-06-11] MEDS ORDERED: CEPHALEXIN 500MG STARTER PACK 4 CAP BTL PO STA (15:41)
[2020-06-11 15:54] VITALS: BP 115/90; PULSE 59
== END 2020-06-11 15:53 | disposition home or self-care (01) ==
LOC: EC 13:20
DX: L03.116 Cellulitis of left lower limb (principal); I25.10 Atherosclerotic heart disease of native coronary artery without angina pectoris; J44.9 Chronic obstructive pulmonary disease, unspecified; E78.5 Hyperlipidemia, unspecified; F41.9 Anxiety disorder, unspecified; F32.9 Major depressive disorder, single episode, unspecified; I10 Essential (primary) hypertension; M19.90 Unspecified osteoarthritis, unspecified site; G47.30 Sleep apnea, unspecified; E07.9 Disorder of thyroid, unspecified; M10.9 Gout, unspecified; Z79.1 Long term (current) use of non-steroidal anti-inflammatories (NSAID); Z79.51 Long term (current) use of inhaled steroids; Z79.82 Long term (current) use of aspirin; Z79.899 Other long term (current) drug therapy; Z79.890 Hormone replacement therapy; Z95.5 Presence of coronary angioplasty implant and graft; Z86.14 Personal history of Methicillin resistant Staphylococcus aureus infection; Z99.89 Dependence on other enabling machines and devices
CPT/HCPCS: 73590; 93971; 96372; 99284; J1885

== ENCOUNTER 2020-06-24 10:44 | Emergency (ER) | payer MEDICARE ==
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
--- NOTE | 2020-06-24 12:06 | US ---
EXAMINATION TYPE: US venous doppler duplex LE LT DATE OF EXAM: 06/24/2020 11:59 AM COMPARISON: NONE CLINICAL HISTORY: 69-year-old male Pain and edema SIDE PERFORMED: Left TECHNIQUE: The lower extremity deep venous system is examined utilizing real time linear array sonog cheyanne with graded compression, doppler sonography and color-flow sonography. FINDINGS: VESSELS IMAGED: Common Femoral Vein Deep Femoral Vein Greater Saphenous Vein * Femoral Vein Popliteal Vein Small Saphenous Vein * Proximal Calf Veins (* superficial vessels) Left Leg: Negative for DVT IMPRESSION: No evidence for DVT within the left lower extremity imaged from the groin to the upper calf.
[2020-06-24 12:52] VITALS: BP 120/72; PULSE 71; RESP 18; TEMP 98.1
== END 2020-06-24 12:35 | disposition home or self-care (01) ==
LOC: EC 10:44
DX: R60.0 Localized edema (principal); M79.89 Other specified soft tissue disorders; I10 Essential (primary) hypertension; E78.5 Hyperlipidemia, unspecified; J44.9 Chronic obstructive pulmonary disease, unspecified; I25.10 Atherosclerotic heart disease of native coronary artery without angina pectoris; M19.90 Unspecified osteoarthritis, unspecified site; E07.9 Disorder of thyroid, unspecified; N40.0 Benign prostatic hyperplasia without lower urinary tract symptoms; G47.30 Sleep apnea, unspecified; F41.9 Anxiety disorder, unspecified; F32.9 Major depressive disorder, single episode, unspecified; Z79.899 Other long term (current) drug therapy; Z79.82 Long term (current) use of aspirin; Z79.890 Hormone replacement therapy; Z79.1 Long term (current) use of non-steroidal anti-inflammatories (NSAID); Z99.89 Dependence on other enabling machines and devices
CPT/HCPCS: 99283

== ENCOUNTER → 2020-09-22 | Outpatient (CLI) | payer MEDICARE | END | disposition home or self-care (01) | LOC: LABWHC1 16:37 | PROVIDERS: ATTEND Family Medicine | DX: Z20.822 Contact with and (suspected) exposure to COVID-19 (principal); R06.09 Other forms of dyspnea | CPT/HCPCS: U0003; C9803 ==

== ENCOUNTER → 2020-09-28 | Outpatient (CLI) | payer MEDICARE ==
--- NOTE | 2020-09-29 11:50 | ECHOF ---
Referral Reason:R06.09 Dyspnea MEASUREMENTS -------- HEIGHT: 188.0 cm WEIGHT: 145.1 kg BP: RVIDd: 4.1 cm (< 3.3) IVSd: 1.7 cm (0.6 - 1.1) LVIDd: 4.9 cm (3.9 - 5.3) LVPWd: 1.9 cm (0.6 - 1.1) IVSs: 1.9 cm LVIDs: 3.2 cm LVPWs: 2.0 cm LAESV Index (A-L): 21.78 ml/m Ao Diam: 4.2 cm (2.0 - 3.7) AV Cusp: 2.6 cm (1.5 - 2.6) MV EXCURSION: 15.662 mm (> 18.000) MV EF SLOPE: 57 mm/s (70 - 150) EPSS: 0.8 cm MV E Michael: 0.68 m/s MV DecT: 262 ms MV A Michael: 0.96 m/s MV E/A Ratio: 0.71 FINDINGS -------- Sinus rhythm. This was a technically difficult study with suboptimal views. The left ventricular size is normal. There is moderate concentric left ventricular hypertrophy. O verall left ventricular systolic function is normal with, an EF between 55 - 60 %. The diastolic fi lling pattern is normal for the age of the patient 10.58. The right ventricle is moderately enlarged. Normal LA size by volume 22+/-6 ml/m2. The right atrium was not well visualized. 5.0mg of Lumason was utilized for enhancement of images Interatrial and interventricular septum intact. The aortic valve was not well visualized. There is no evidence of aortic regurgitation. There is no evidence of aortic stenosis. There is trace to mild mitral regurgitation. Mild tricuspid regurgitation present. There is no evidence of pulmonary hypertension. The right v entricular systolic pressure, as measured by Doppler, is {RVSP}. There is no pulmonic regurgitation present. The aortic root size is normal. IVC Not well visulized. There is no pericardial effusion. CONCLUSIONS -------- 1. The left ventricular size is normal. 2. There is moderate concentric left ventricular hypertrophy. 3. Overall left ventricular systolic function is normal with, an EF between 55 - 60 %. 4. The diastolic filling pattern is normal for the age of the patient 10.58 5. The right ventricle is moderately enlarged. 6. There is trace to mild mitral regurgitation. 7. Mild tricuspid regurgitation present. DOPE MAINTENANCE WORKER: Zaida Marin RDCS
== END | disposition home or self-care (01) ==
LOC: RADECHMAIN 14:00
PROVIDERS: ATTEND Family Medicine
DX: I08.1 Rheumatic disorders of both mitral and tricuspid valves (principal)
CPT/HCPCS: C8929; Q9950; 93306

== ENCOUNTER 2020-12-06 18:11 | Emergency (ER) | payer MEDICARE ==
[2020-12-06 18:19] VITALS: BP 137/79; PULSE 70; RESP 16; TEMP 97.8
[2020-12-06] MEDS ORDERED: LIDOCAINE 1% INJ 10MG/ML (20 ML MDV) SQ ONE (18:32)
[2020-12-06] MEDS ORDERED: HYDROcodone/APAP 5-325MG 1 EACH TAB PO STA (18:38)
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
--- NOTE | 2020-12-06 18:54 | XR ---
EXAMINATION TYPE: XR finger RT DATE OF EXAM: 12/06/2020 COMPARISON: NONE HISTORY: Laceration TECHNIQUE: 3 views FINDINGS: I see no fracture nor dislocation. The ring finger is intact. There is minor spurring at th e IP joints. There is no sign of a foreign body. IMPRESSION: Mild osteoarthritis. No fracture.
[2020-12-06] MEDS ORDERED: BACITRACIN OINT 1 EACH PACKET TOPICAL ONE (19:31)
== END 2020-12-06 19:43 | disposition home or self-care (01) ==
LOC: EC 18:11
DX: S61.213A Laceration without foreign body of left middle finger without damage to nail, initial encounter (principal); I10 Essential (primary) hypertension; I25.10 Atherosclerotic heart disease of native coronary artery without angina pectoris; E78.5 Hyperlipidemia, unspecified; J44.9 Chronic obstructive pulmonary disease, unspecified; F32.9 Major depressive disorder, single episode, unspecified; F41.9 Anxiety disorder, unspecified; N40.0 Benign prostatic hyperplasia without lower urinary tract symptoms; Z79.1 Long term (current) use of non-steroidal anti-inflammatories (NSAID); Z79.890 Hormone replacement therapy; Z79.82 Long term (current) use of aspirin; Z79.51 Long term (current) use of inhaled steroids; Z79.899 Other long term (current) drug therapy; W23.0XXA Caught, crushed, jammed, or pinched between moving objects, initial encounter; Y92.009 Unspecified place in unspecified non-institutional (private) residence as the place of occurrence of the external cause
CPT/HCPCS: 73140; 12001; 99283; J2001

== ENCOUNTER → 2021-05-03 | Outpatient (CLI) | payer MEDICARE | END | disposition home or self-care (01) | LOC: LABWHC1 11:33 | PROVIDERS: ATTEND Family Medicine | DX: R06.09 Other forms of dyspnea (principal) | CPT/HCPCS: U0003; C9803 ==

== ENCOUNTER 2021-05-04 07:11 | Day surgery (SDC) | payer MEDICARE ==
[2021-05-03 14:20] VITALS: BMI 39.1
[~2021-05-04 07:11] MED LIST changes: -HEPARIN SODIUM 1,000 UN/ML (10ML VL) IV ONE; -HEPARIN SODIUM 1,000 UN/ML (10ML VL) ONE; +HEPARIN SODIUM,PORCINE 10,000 UNIT in SODIUM CHLORIDE 0.9% 1,000 ML IRRIGATION PRN; +HEPARIN SODIUM,PORCINE 2,500 UNIT in SODIUM CHLORIDE 0.9% 250 ML IRRIGATION PRN; -IOPAMIDOL-370 150ML BTL INJ ONE; -LIDOCAINE 1% INJ 10MG/ML (20 ML MDV) ONE; -LIDOCAINE 1% INJ 10MG/ML (20 ML MDV) SQ ONE; -MIDAZOLAM 2 MG/2 ML VIAL IV ONE; -RX INFO: IV CONTRAST WAS GIVEN 1 EACH MISC MISCELLANE PRN; -SODIUM CHLORIDE 0.9% 1,000 ML IV SCH; -SODIUM CHLORIDE 0.9% 1,000 ML in EMPTY BAG 1 BAG IV ONE; +SODIUM CHLORIDE 0.9% 1,000 ML in EMPTY BAG 1 BAG IV SCH; -VERAPAMIL 2.5 MG/ML 2 ML AMP ONE; -VERAPAMIL SYRINGE (5 MG/10 ML) INTRAARTER ONE
[2021-05-04] MEDS ORDERED: SODIUM CHLORIDE 0.9% 1,000 ML IV ONE (07:37)
[2021-05-04 08:00] VITALS: TEMP 98
[2021-05-04 08:21] LABS: Basophils % (A) 1 %; Eosinophils # (A) 0.2 k/uL (0-0.7); Eosinophils % (A) 4 %; HCT 38.6 % (39.0-53.0); HGB 12.9 gm/dL (13.0-17.5); Lymphocytes # (A) 1.6 k/uL (1.0-4.8); Lymphocytes % (A) 25 %; MCH 29.7 pg (25.0-35.0); MCHC 33.5 g/dL (31.0-37.0); MCV 88.5 fL (80.0-100.0); Mean Platelet Volume 7.6; Monocytes # (A) 0.6 k/uL (0-1.0); Monocytes % (A) 9 %; Neutrophils % (A) 61 %; Platelet Count 264 k/uL (150-450); RBC 4.36 m/uL (4.30-5.90); RDW 14.9 % (11.5-15.5); WBC 6.5 k/uL (3.8-10.6)
[2021-05-04] MEDS ORDERED: LIDOCAINE 1% INJ 10MG/ML (20 ML MDV) ONE ×2 (08:50→10:48)
[2021-05-04] MEDS ORDERED: VERAPAMIL 2.5 MG/ML 2 ML AMP ONE ×2 (08:51→10:49)
[2021-05-04] MEDS ORDERED: HEPARIN SODIUM 1,000 UN/ML (10ML VL) ONE (10:59)
[2021-05-04] MEDS ORDERED: MIDAZOLAM 2 MG/2 ML VIAL IV ONE (11:08)
[2021-05-04] MEDS ORDERED: LIDOCAINE 1% INJ 10MG/ML (20 ML MDV) SQ ONE (11:09)
[2021-05-04] MEDS ORDERED: VERAPAMIL SYRINGE (5 MG/10 ML) INTRAARTER ONE (11:10)
[2021-05-04] MEDS ORDERED: HEPARIN SODIUM 1,000 UN/ML (10ML VL) IV ONE (11:12)
[2021-05-04] MEDS ORDERED: IOPAMIDOL-370 125ML BTL INJ ONE (11:20)
[2021-05-04] MEDS ORDERED: RX INFO: IV CONTRAST WAS GIVEN 1 EACH MISC MISCELLANE PRN (11:36)
[2021-05-04] MEDS ORDERED: SODIUM CHLORIDE 0.9% 1,000 ML IV SCH (11:45)
--- NOTE | 2021-05-04 13:56 | CC ---
CARDIAC CATHETERIZATION REPORT DATE OF SERVICE: May 04, 2021. PERFORMING PHYSICIAN: Kavon Lindsay MD. PROCEDURE PERFORMED: 1. Selective right and left coronary angiogram. 2. Left heart catheterization. INDICATION: This is a pleasant 70-year-old gentleman with coronary artery disease and prior stenting of the LAD who was experiencing chest discomfort with exertion concerning for severe underlying coronary artery disease. Because of that, a heart catheterization was advised. APPROACH: Right radial artery. COMPLICATIONS: None. LEVEL OF SEDATION: Moderate, with sedation length of the 11 minutes. PROCEDURE DESCRIPTION: After obtaining an informed consent, the patient was brought to the cardiac landscape and yardwork laborer. The right radial artery was cannulated using micropuncture technique, the micropuncture wire passed easily. Then I placed a 6-Bermudian sheath at the right radial artery. I gave the patient 2 mg of verapamil IA and 10,000 units of heparin IV. Selective right and left coronary angiogram performed with JR4 and JL3.5 catheters. Left heart catheterization was performed using 5-Bermudian pigtail catheter. SELECTIVE CORONARY ANGIOGRAM: 1. The right coronary artery is a medium caliber vessel, nondominant vessel. Has intermediate lesion in the mid portion. 2. The left main is angiographically normal. It bifurcates into LCX and LAD. 3. The LCX is a large-caliber vessel. It is a dominant vessel. The LCX has mild diffuse disease only. It gives rise into a first OM branch which worked as ramus intermedius and second OM branch which appeared to be angiographically normal. 4. The LAD is a large-caliber vessel. The LAD has mild disease only. The stent in the LAD appeared to be patent. The mid LAD has a lesion appeared to be in the range of 30% to 40%. HEMODYNAMICS: The LVEDP was about 10 to 12 mmHg without significant gradient across aortic valve. CONCLUSION: 1. Patent stent in the proximal LAD. 2. Mild disease involving the mid LAD. 3. Normal left-sided filling pressure. POSTPROCEDURE MANAGEMENT: Medical treatment and follow up with the patient. MMODL / IJN: [id number] /
[2021-05-04 14:16] VITALS: RESP 16
[2021-05-04 14:21] VITALS: BP 147/82
[2021-05-04 15:41] VITALS: PULSE 64
== END 2021-05-04 16:31 | disposition home or self-care (01) ==
LOC: CATHCVL 07:11
PROVIDERS: ATTEND Internal Medicine Interventional Cardiology
DX: I25.10 Atherosclerotic heart disease of native coronary artery without angina pectoris (principal); Z20.822 Contact with and (suspected) exposure to COVID-19
CPT/HCPCS: 93452; 85025; 87635; J2250; J2001; J1644; Q9967; 93458

== ENCOUNTER 2021-05-05 14:09 | Emergency (ER) | payer MEDICARE ==
[2021-05-05 15:44] LABS: Basophils % (A) 1 %; Eosinophils # (A) 0.3 k/uL (0-0.7); Eosinophils % (A) 4 %; HCT 41.4 % (39.0-53.0); HGB 13.6 gm/dL (13.0-17.5); Lymphocytes # (A) 1.4 k/uL (1.0-4.8); Lymphocytes % (A) 25 %; MCH 29.1 pg (25.0-35.0); MCHC 32.9 g/dL (31.0-37.0); MCV 88.4 fL (80.0-100.0); Mean Platelet Volume 7.5; Monocytes # (A) 0.4 k/uL (0-1.0); Monocytes % (A) 8 %; Neutrophils # (A) 3.4 k/uL (1.3-7.7); Neutrophils % (A) 60 %; Platelet Count 248 k/uL (150-450); RBC 4.69 m/uL (4.30-5.90); RDW 15.1 % (11.5-15.5); WBC 5.7 k/uL (3.8-10.6)
[2021-05-05 15:54] LABS: ALT 15 U/L (4-49); AST 17 U/L (17-59); African American GFR (CKD) >90 (>60 ml/min/1.73 sqM); Albumin 3.9 g/dL (3.5-5.0); Alkaline Phosphatase 84 U/L (38-126); Anion Gap 8 mmol/L; Blood Urea Nitrogen 17 mg/dL (9-20); Calcium 9.1 mg/dL (8.4-10.2); Carbon Dioxide 25 mmol/L (22-30); Chloride 104 mmol/L (98-107); Glucose 92 mg/dL (74-99); Magnesium 1.9 mg/dL (1.6-2.3); Non-African American GFR(CKD) 81 (>60 ml/min/1.73 sqM); Sodium 137 mmol/L (137-145); Total Bilirubin 0.4 mg/dL (0.2-1.3); Total Protein 6.8 g/dL (6.3-8.2)
[2021-05-05 16:06] LABS: Partial Thromboplastin Time 27.8 sec (22.0-30.0); Prothrombin Time 10.3 sec (9.0-12.0)
--- NOTE | 2021-05-05 17:37 | XR ---
EXAMINATION TYPE: XR chest 2V DATE OF EXAM: 05/05/2021 COMPARISON: 11/12/2019 HISTORY: Chest pain TECHNIQUE: Single view FINDINGS: There is some mild linear density at the lung bases. There is poor inspiration. Heart size is normal. There is no heart failure. There are no hilar masses. IMPRESSION: Minimal subsegmental atelectasis at the lung bases. No pulmonary consolidation or heart f ailure. Inspiration slightly decreased compared to last exam.
[2021-05-05] MEDS ORDERED: ALBUTEROL HFA INHALER INHALATION STA (18:14)
[2021-05-05] MEDS ORDERED: KETOROLAC 15 MG/ML 1 ML VIAL IVP STA (18:15)
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
--- NOTE | 2021-05-05 19:19 | CT ---
EXAMINATION TYPE: CT angio chest DATE OF EXAM: 05/05/2021 COMPARISON: HISTORY: Chest pain. Heart cath yesterday. CT DLP: 575.8 mGycm Automated exposure control for dose reduction was used. CONTRAST: Performed with IV Contrast, patient injected with 100 mL of Isovue 370. There is symmetric interstitial infiltrates and subsegmental atelectasis in the posterior lung barry . Heart appears enlarged. There is no pericardial effusion. There are no hilar masses. There is no me diastinal adenopathy. Thoracic aorta is intact. There is no aneurysm or dissection. There is normal contrast opacification of the pulmonary arteries. There are no filling defects. Thoracic spine is intact. There is no compression fracture. Sternum is intact. IMPRESSION: No evidence of pulmonary embolism. Mild interstitial increased density in the posterior lung barry a ppears increased compared to old exam. No suspicious pulmonary mass.
[2021-05-05 19:51] VITALS: RESP 18
[2021-05-05] MEDS ORDERED: SODIUM CHLORIDE 0.9% 50 ML IVPB ONE (20:15)
[2021-05-05] MEDS ORDERED: CASIRIVIMAB (REGN10933) (EUA) 600 MG, IMDEVIMAB (REGN10987) (EUA) 600 MG in SODIUM CHLO... IVPB ONE (20:15)
[2021-05-05] MEDS ORDERED: methylPREDNISolone SOD SUCCI 125 MG/2 ML VIAL IV STA (20:40)
[2021-05-05] MEDS ORDERED: AZITHROMYCIN 500 MG TAB PO STA (20:40)
[2021-05-05 23:06] VITALS: BP 125/74; PULSE 59; TEMP 97.9
== END 2021-05-05 23:05 | disposition home or self-care (01) ==
LOC: EC 14:09
DX: U07.1 COVID-19 (principal); J44.1 Chronic obstructive pulmonary disease with (acute) exacerbation; M94.0 Chondrocostal junction syndrome [Tietze]; I10 Essential (primary) hypertension; E78.5 Hyperlipidemia, unspecified; I25.10 Atherosclerotic heart disease of native coronary artery without angina pectoris; M19.90 Unspecified osteoarthritis, unspecified site; F32.A Depression, unspecified; F41.9 Anxiety disorder, unspecified; Z79.82 Long term (current) use of aspirin; Z79.52 Long term (current) use of systemic steroids; Z79.51 Long term (current) use of inhaled steroids; Z79.890 Hormone replacement therapy; Z79.899 Other long term (current) drug therapy
CPT/HCPCS: 36415; 94640; 93005; 85379; 80053; 83735; 84484; 85025; 85610; 85730; 87635; 71046; 71275; 99285; 96374; 96375; J2930; J1885; Q9967; Q0244

== ENCOUNTER → 2021-06-08 | Outpatient (CLI) | payer MEDICARE ==
--- NOTE | 2021-06-08 10:59 | MR ---
EXAMINATION TYPE: MR brain wo/w con DATE OF EXAM: 06/08/2021 COMPARISON: CT 05/20/2021 HISTORY: Headaches and dizzyness for 3 weeks TECHNIQUE: Multiplanar, multisequence images of the brain and brainstem is performed without and with IV contras t, utilizing 14 mL intravenous Gadavist . FINDINGS: Diffusion weighted images demonstrate no evidence of a recent infarct or other diffusion ab normality. There is generalized mild to moderate degenerative change of the slightly greater frontal lobe component. Nonspecific periventricular areas of signal are most typical of remote white matter ischemia. Midline structures demonstrate normal morphology. The craniocervical junction appears within normal limits. Post contrast images demonstrate no abnormal enhancement. The dural venous sinuses appear pa tent. Findings suggest remote nasal bone fracture. Orbits are symmetric and there are changes of mild chronic sinusitis. Changes of chronic mastoiditis. IMPRESSION: 1. Degenerative change with no enhancing mass or mass effect. 2. Chronic mastoiditis and sinusitis.
== END | disposition home or self-care (01) ==
LOC: RADMRIMAIN 09:44
PROVIDERS: ATTEND Family Medicine
DX: G31.9 Degenerative disease of nervous system, unspecified (principal); H70.10 Chronic mastoiditis, unspecified ear; J32.9 Chronic sinusitis, unspecified
CPT/HCPCS: 70553; A9585

== ENCOUNTER 2022-10-19 12:56 | Emergency (ER) | payer MEDICARE ==
[2022-10-19] MEDS ORDERED: HYDROcodone/APAP 5-325MG 1 EACH TAB PO STA (13:40)
--- NOTE | 2022-10-19 14:14 | XR ---
EXAMINATION TYPE: XR shoulder complete LT DATE OF EXAM: 10/19/2022 CLINICAL HISTORY: Fall injury with pain TECHNIQUE: Three views of the left shoulder are obtained. COMPARISON: Prior left shoulder x-ray November 01, 2016. FINDINGS: There is no acute fracture/dislocation evident in the left shoulder. The acromioclavicula r joint space appears within normal limits. Glenohumeral joint shows persistent mild narrowing. The visualized ribs are intact and unremarkable. IMPRESSION: As above. No significant change from prior.
[2022-10-19] MEDS ORDERED: ACET/COD 300 MG/30 MG STARTER PACK 6 TAB BTL PO STA (14:37)
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
[2022-10-19 15:22] VITALS: BP 114/70; PULSE 64; RESP 18; TEMP 97.9
== END 2022-10-19 15:32 | disposition home or self-care (01) ==
LOC: EC 12:56
DX: S46.912A Strain of unspecified muscle, fascia and tendon at shoulder and upper arm level, left arm, initial encounter (principal); I25.10 Atherosclerotic heart disease of native coronary artery without angina pectoris; J44.9 Chronic obstructive pulmonary disease, unspecified; E78.5 Hyperlipidemia, unspecified; I10 Essential (primary) hypertension; M19.90 Unspecified osteoarthritis, unspecified site; G47.30 Sleep apnea, unspecified; E07.9 Disorder of thyroid, unspecified; F41.9 Anxiety disorder, unspecified; F32.A Depression, unspecified; Z79.890 Hormone replacement therapy; Z79.1 Long term (current) use of non-steroidal anti-inflammatories (NSAID); Z79.899 Other long term (current) drug therapy; Z79.82 Long term (current) use of aspirin
CPT/HCPCS: 99284

== ENCOUNTER → 2023-05-19 | Outpatient (CLI) | payer MEDICARE | END | disposition home or self-care (01) | LOC: RADUSWWP 09:35 | PROVIDERS: ATTEND Family Medicine | DX: Z53.9 Procedure and treatment not carried out, unspecified reason (principal) ==

== ENCOUNTER → 2023-05-31 | Outpatient (CLI) | payer MEDICARE ==
--- NOTE | 2023-06-02 14:32 | MR ---
EXAMINATION TYPE: MR cervical spine wo con DATE OF EXAM: 05/31/2023 7:58 PM CLINICAL INDICATION:Male, 72 years old with history of M54.2; COMPARISON: None. TECHNIQUE: Multi planar, multi sequence imaging was performed utilizing: T1-weighted, T2-weighted, an d turbo inversion recovery imaging of the cervical spine. IV Contrast: cc (none if empty) FINDINGS: Alignment: The cervical vertebral bodies have preserved heights. Alignment is within normal limits gi gita patient positioning. Bones: Scattered Modic endplate changes with osteophytes and disc space narrowing. Multilevel degener ative disc disease is noted and most pronounced at the c3 through C7 vertebral levels. Cord: The spinal cord is unremarkable with regards to their signal intensity and morphology. Discs: Intervertebral disc signal is maintained. C2-C3: No significant disc pathology. The spinal canal is patent. No neural foraminal stenosis. C3-C4: A disc osteophyte complex is present with mild spinal canal stenosis. Bilateral facet and unc overtebral joint arthropathy are present with moderate bilateral neural foraminal stenosis. C4-C5: A disc osteophyte complex is present with mild spinal canal stenosis. Bilateral facet and unc overtebral joint arthropathy are present with moderate right and moderate to severe left bilateral ne ural foraminal stenosis. C5-C6: A disc osteophyte complex is present with mild spinal canal stenosis. Bilateral facet and unc overtebral joint arthropathy are present with moderate severe left and moderate right neural foramina l stenosis. C6-C7: A disc osteophyte complex is present which minimally narrows the ventral subarachnoid space. Bilateral facet and uncovertebral joint arthropathy are present with mild bilateral neural foraminal stenosis. C7-T1: No significant disc pathology. The spinal canal is patent. No neural foraminal stenosis. Other: None. IMPRESSION: 1. No evidence for disc herniation or significant spinal canal stenosis. 2. Moderate disc degeneration with associated osteoarthritic changes with no foraminal stenosis worse on the left at C4-C5 and C5-C6 with moderate to severe stenosis.
== END | disposition home or self-care (01) ==
LOC: RADMRIMAIN 18:32
PROVIDERS: ATTEND Orthopaedic Surgery
DX: S46.002D Unspecified injury of muscle(s) and tendon(s) of the rotator cuff of left shoulder, subsequent encounter (principal); M47.892 Other spondylosis, cervical region; M50.121 Cervical disc disorder at C4-C5 level with radiculopathy; M47.22 Other spondylosis with radiculopathy, cervical region
CPT/HCPCS: 72141

== ENCOUNTER → 2023-07-19 | Outpatient (CLI) | payer MEDICARE ==
--- NOTE | 2023-07-23 15:02 | MR ---
EXAMINATION TYPE: MR Prostate wo/w con DATE OF EXAM: 07/19/2023 10:30 AM COMPARISON: None. CLINICAL INDICATION:Male, 72 years old with history of R97.20 ELEVATED PROSTATE SPECIFIC ANTIGEN; Patsy vated PSA. TECHNIQUE: Multi-planar, multi-sequence imaging of the pelvis is performed prior to and following the uncomplicated administration of bolus intravenous gadolinium. CONTRAST: 13.5 Gadavist Interpretive Criteria: PI-RADS v2.1 SERUM PSA: 16.3 on 03/23/2023. 4.8 on 05/02/2019. SURGICAL PATHOLOGY: No data available. FINDINGS: Prostatic dimensions: 5.2 x 5.9 x 3.7 cm. Ellipsoid Volume:59.44 (PSA density=0.27 ng/mL/mL) CENTRAL GLAND (Central and Transition Zones/CZ+TZ): Multiple bilateral, heterogenous appearing hypertrophic stromal nodules, without suspicious lesion. ( PI-RADS 2) PERIPHERAL ZONE (PZ): Limited evaluation of this diffusion-weighted imaging sequences due to gas in the rectum and left hip arthroplasty. There is somewhat diffuse areas of low signal within the peripheral zone. Some of thes e are wedge-shaped others. Example includes a 20 x 9 mm area in the right posterior peripheral zone m id gland series 501 image 17 and left posterior peripheral zone series 601 image 17 measuring 14 x 8 mm near the apex. Dilation of these regions with diffusion weighted imaging is limited due to gas in the rectum and left hip arthroplasty.(PI-RADS 3) SEMINAL VESICLES (SV): Symmetric and unremarkable. PERIPROSTATIC TISSUES: Unremarkable. LYMPH NODES: No enlarged pelvic lymph node. REMAINING PELVIS: Bladder wall is within normal limits given distention. No abnormal free or organized intrapelvic fluid collection. No pathologic bowel dilation or mural thickening. Bilateral fat containing inguinal hernias. The left bladder dome partially enters the left inguinal h ernia. OSSEOUS STRUCTURES: No suspicious osseous abnormality. IMPRESSION: Limited evaluation secondary motion, gas in the rectum and left hip arthroplasty. 1. Diffuse low T2 signal in the peripheral zone which could be secondary to prostatitis with underlyi ng malignancy not excluded given limited evaluation. Tissue sampling recommended particularly in the right mid gland peripheral zone and left mid gland peripheral zone near the apex described above. Max imum PI-RADS score: 3. 2. Moderate BPH, estimated gland volume 59.44 mL. 3. No suspicious osseous lesion. No lymphadenopathy. No evidence of prostate adenocarcinoma involving the periprostatic tissues. 4. Bilateral inguinal hernias, the left with the urinary bladder extending partially the left inguina l canal.
== END | disposition home or self-care (01) ==
LOC: RADMRIMAIN 09:07
PROVIDERS: ATTEND Urology
DX: N40.0 Benign prostatic hyperplasia without lower urinary tract symptoms (principal); K40.20 Bilateral inguinal hernia, without obstruction or gangrene, not specified as recurrent; N32.89 Other specified disorders of bladder; R97.20 Elevated prostate specific antigen [PSA]; Z96.642 Presence of left artificial hip joint
CPT/HCPCS: 72197; A9585

== ENCOUNTER → 2023-08-24 | Outpatient (CLI) | payer MEDICARE ==
[2023-08-24 15:27] LABS: Basophils # (A) 0.04 X 10*3/uL (0.00-0.10); Basophils % (A) 0.6 %; Eosinophils # (A) 0.31 X 10*3/uL (0.04-0.35); Eosinophils % (A) 4.9 %; HCT 39.2 % (39.6-50.0); HGB 12.9 g/dL (13.0-17.0); Lymphocytes # (A) 1.42 X 10*3/uL (0.90-5.00); Lymphocytes % (A) 22.4 %; MCHC 32.9 g/dL (32.0-37.0); MCV 91.2 FL (80.0-97.0); Mean Platelet Volume 10.3 FL (9.5-12.2); Monocytes # (A) 0.79 X 10*3/uL (0.20-1.00); Monocytes % (A) 12.5 %; NRBC Per 100 WBC 0 X 10*3/uL (0.00-0.01); Neutrophils # (A) 3.71 X 10*3/uL (1.80-7.70); Neutrophils % (A) 58.7 %; Platelet Count 240 X 10*3/uL (140-440); RDW 14.7 % (11.5-14.5); WBC 6.33 X 10*3/uL (4.50-10.00)
[2023-08-24 15:49] LABS: BUN/Creat Ratio 18.78 Ratio (12.00-20.00); Blood Urea Nitrogen 16.9 mg/dL (9.0-27.0); Calcium 8.9 mg/dL (8.7-10.3); Carbon Dioxide 22.8 mmol/L (21.6-31.8); Chloride 108 mmol/L (96-109); Glucose 98 mg/dL (70-110); Potassium 4.7 mmol/L (3.5-5.5); Sodium 142 mmol/L (135-145)
== END | disposition home or self-care (01) ==
LOC: LABPAT 10:42
PROVIDERS: ATTEND Urology
DX: Z01.812 Encounter for preprocedural laboratory examination (principal); R97.20 Elevated prostate specific antigen [PSA]
CPT/HCPCS: 36415; 80048; 85025

== ENCOUNTER 2023-08-31 11:10 | Day surgery (SDC) | payer MEDICARE ==
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
[~2023-08-31 11:10] MED LIST changes: -ALPRAZolam 0.25 MG TAB PO PRN; -ALPRAZolam 0.5 MG TAB PO PRN; -ASPIRIN 325 MG TAB PO STA; -ATORVASTATIN 80 MG TAB PO STA; -HEPARIN SODIUM,PORCINE 10,000 UNIT in SODIUM CHLORIDE 0.9% 1,000 ML IRRIGATION PRN; -HEPARIN SODIUM,PORCINE 2,500 UNIT in SODIUM CHLORIDE 0.9% 250 ML IRRIGATION PRN; -NITROGLYCERIN SL TABS 0.4 MG TAB SUBLINGUAL PRN; -SODIUM CHLORIDE 0.9% 1,000 ML in EMPTY BAG 1 BAG IV SCH; +fentaNYL (PF) 50 MCG/ML 2 ML AMP IV PRN
[2023-08-31] MEDS ORDERED: MIDAZOLAM 2 MG/2 ML VIAL ONE (13:00)
[2023-08-31] MEDS ORDERED: fentaNYL (PF) 50 MCG/ML 2 ML AMP ONE (13:00)
[2023-08-31] MEDS ORDERED: GLYCOPYRROLATE 0.2 MG/ML 2 ML VIAL ONE (13:00)
[2023-08-31] MEDS ORDERED: PROPOFOL 10 MG/ML 20 ML VIAL IV ONE (13:00)
[2023-08-31] MEDS: LACTATED RINGERS 1,000 ML IV SCH (13:21)
[2023-08-31] MEDS: GENTAMICIN 40 MG/ML 2 ML VIAL IM PRN (13:26)
[2023-08-31 13:40] VITALS: TEMP 98.6
--- NOTE | 2023-08-31 15:24 | P.OP ---
Date of Procedure: 08/31/23 Preoperative Diagnosis: Elevated PSA level Postoperative Diagnosis: Same Procedure(s) Performed: MRI ultrasound-guided fusion biopsies of the prostate Anesthesia: MAC Surgeon: Jerel Aponte Estimated Blood Loss (ml): 5 IV fluids (ml): 300 Condition: stable Indications for Procedure: The patient is a 72-year-old white male with multiple medical problems. He has no family history of prostate cancer. His PSA level has been rising and was most recently 18.30. MRI of the prostate shows multiple PI-RADS 3 lesions within the peripheral zone. Operative Findings: 2 target lesions seen, 1 within the peripheral zone on each side. Description of Procedure: The patient was taken to the operating room and placed in the left lateral decubitus position. STACIE revealed the prostate to be moderately enlarged with smooth. The [employer] transrectal ultrasound probe was placed intrarectally. It was then placed within the stand of the [employer] MRI/TRUS Fusion for Prostate Biopsy system. The prostate was imaged in both the axial and sagittal planes, revealing a prostate volume of 56 mL. Using the Biopty gun, 3 biopsies were obtained from each of 2 target lesions. The remaining 12 biopsies of the peripheral zone were obtained utilizing a standard template. Once the procedure was completed, the ultrasound probe was removed. The patient tolerated the procedure well was taken to the recovery room stable condition.
[2023-08-31 15:56] VITALS: BP 124/75; PULSE 68; RESP 18
== END 2023-08-31 16:16 | disposition home or self-care (01) ==
LOC: OR 11:10
PROVIDERS: ATTEND Urology
DX: C61 Malignant neoplasm of prostate (principal); I25.10 Atherosclerotic heart disease of native coronary artery without angina pectoris; E78.5 Hyperlipidemia, unspecified; F32.A Depression, unspecified; F41.9 Anxiety disorder, unspecified; I10 Essential (primary) hypertension; J44.9 Chronic obstructive pulmonary disease, unspecified; M19.90 Unspecified osteoarthritis, unspecified site; E07.9 Disorder of thyroid, unspecified; G47.33 Obstructive sleep apnea (adult) (pediatric); M10.9 Gout, unspecified; F10.90 Alcohol use, unspecified, uncomplicated; N40.1 Benign prostatic hyperplasia with lower urinary tract symptoms; Z79.1 Long term (current) use of non-steroidal anti-inflammatories (NSAID); Z79.52 Long term (current) use of systemic steroids; Z79.890 Hormone replacement therapy; Z91.030 Bee allergy status; Z86.14 Personal history of Methicillin resistant Staphylococcus aureus infection; Z95.5 Presence of coronary angioplasty implant and graft; Z79.82 Long term (current) use of aspirin; Z88.1 Allergy status to other antibiotic agents
CPT/HCPCS: 55700; 88305; J2250; J1580; J3010; J2704

== ENCOUNTER → 2023-10-06 | Outpatient (CLI) | payer MEDICARE ==
--- NOTE | 2023-10-12 22:29 | PE ---
EXAMINATION TYPE: PET CT fusion skull to thigh DATE OF EXAM: 10/06/2023 COMPARISON: No recent pertinent CT. Prior PET/CT: No prior PET/CT this location HISTORY: Prostate cancer TECHNIQUE: Following the intravenous administration of 4.33 mCi of F-18 FDG, whole body images are p erformed from the skull base to the midthigh. Images are reviewed on the computer in the coronal, ax ial, and sagittal planes. Reconstructed rotating images are created on independent workstation and r eviewed on the computer. A localization and attenuation correction CT is performed in conjunction w ith the PET scan. DLP: 5-1.30 mGycm SCAN: Initial FINDINGS: NECK: There is normal uptake within the salivary glands THORAX: No abnormal uptake ABDOMEN: No abnormal uptake PELVIS: No abnormal uptake. Suspicious uptake within the prostate not clearly identified identified i s the primary. OSSEOUS STRUCTURES: No abnormal uptake LOCALIZATION CT: No suspicious acute changes COMPARISON: None IMPRESSION: 1. Patient's primary not identified on this PET scan. 2. No suspicious metastatic lesions.
== END | disposition home or self-care (01) ==
LOC: RADPETMAIN 09:31
PROVIDERS: ATTEND Urology
DX: C61 Malignant neoplasm of prostate (principal)
CPT/HCPCS: 78815; A9596

== ENCOUNTER → 2023-10-17 | Outpatient (CLI) | payer MEDICARE ==
--- NOTE | 2023-10-18 18:50 | MR ---
EXAMINATION TYPE: MR lumbar spine wo/w con DATE OF EXAM: 10/17/2023 8:45 PM CLINICAL INDICATION:Male, 73 years old with history of M48.062 spinal stenosis, lumbar region with ne urogenic rusty; PHH, Low back pain that radiates down legs. Prostate cancer COMPARISON: 10/06/2023 TECHNIQUE: Multi planar, multi sequence imaging was performed utilizing: T1-weighted, T2-weighted, a nd turbo inversion recovery imaging of the lumbar spine. IV Contrast: 14 cc Gadavist. (None if empty) FINDINGS: Alignment: The lumbar vertebral bodies have preserved heights and alignment. Cord: The conus medullaris and the distal spinal cord appear unremarkable with regards to their signa l intensity and morphology. Bones/Discs: Multilevel disc degeneration changes with osteophyte formation, disc space narrowing, Sc hmorl's nodes, and facet joint arthropathy. No abnormal inversion recovery signal to suggest bony tnaia ma. Multilevel disc desiccation is present. Scattered reactive edema on inversion recovery sequences. Scattered focal fat suggested throughout the vertebral bodies with fat suppression sequences loss of signal. Alternatively these could represent vertebral body hemangiomas. T12-L1: No evidence of significant spinal canal stenosis or neural foraminal stenosis. L1-L2: No evidence of significant spinal canal stenosis or neural foraminal stenosis. L2-L3: Disc bulge and facet joint arthropathy result in mild spinal canal and moderate to severe righ t greater than left bilateral neural foraminal stenosis. L3-L4: Disc bulge and facet joint arthropathy result in moderate spinal canal and moderate to severe bilateral neural foraminal stenosis, right greater than left. L4-L5: Disc bulge and facet joint arthropathy result in mild spinal canal and moderate to severe bila teral neural foraminal stenosis. L5-S1: The disc has a rounded posterior morphology without significant spinal canal stenosis. Facet j oint arthropathy with mild to moderate bilateral neural foraminal stenosis. No significant spinal canal or neural foraminal stenosis in the remainder of the visualized levels. Other findings: None. IMPRESSION: 1. No definitive evidence of disc herniation or significant spinal canal stenosis. 2. Moderate to severe disc degeneration with associated osteoarthritic changes. 3. Multilevel moderate to severe neural foraminal stenosis at L2-L3 on the right and L3-L4 bilateral ly and L4-L5 bilaterally
== END | disposition home or self-care (01) ==
LOC: RADMRIMAIN 19:21
PROVIDERS: ATTEND Physical Medicine & Rehabilitation
DX: M51.36 Other intervertebral disc degeneration, lumbar region (principal); M48.061 Spinal stenosis, lumbar region without neurogenic claudication; M48.062 Spinal stenosis, lumbar region with neurogenic claudication
CPT/HCPCS: 72158; A9585

== ENCOUNTER → 2023-11-01 | Outpatient (CLI) | payer MEDICARE | END | disposition home or self-care (01) | LOC: LABWHC1 11:18 | PROVIDERS: ATTEND Radiology Radiation Oncology | DX: C61 Malignant neoplasm of prostate (principal) | CPT/HCPCS: 36415; 84153 ==

== ENCOUNTER 2023-11-10 15:39 | Emergency (ER) | payer MEDICARE ==
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
[2023-11-10] MEDS: HYDROmorphone 0.5 MG/0.5 ML SYRINGE IM STA (16:47)
[2023-11-10] MEDS: HYDROmorphone 1 MG/ML 1 ML SYRINGE IM STA (18:24)
--- NOTE | 2023-11-10 19:12 | XR ---
EXAMINATION TYPE: XR ribs RT w pa chest xray, 6 views. DATE OF EXAM: 11/10/2023 COMPARISON: 05/05/2021 HISTORY: 73-year-old male fall and pain TECHNIQUE: AP and lateral views FINDINGS: Heart mildly enlarged. Haziness is seen likely relating to large patient body habitus. Some strandy a telectasis at the lower lungs. No pneumothorax or pleural effusion is seen. Findings suggest subtle nondisplaced and minimally offset fractures of the right lateral fourth, fift h, sixth ribs.. IMPRESSION: 1. Findings suggest fractures of the right-sided fourth, fifth, and sixth ribs. 2. Mild cardiomegaly. Limitations due to large body habitus. Suspect some strandy atelectasis at the lower lungs.
[2023-11-10] MEDS: ACET/COD 300 MG/30 MG STARTER PACK 6 TAB BTL PO STA (19:51)
[2023-11-10 19:57] VITALS: BP 116/68; PULSE 60; RESP 20; TEMP 98.6
== END 2023-11-10 20:02 | disposition home or self-care (01) ==
LOC: EC 15:39
DX: S22.41XA Multiple fractures of ribs, right side, initial encounter for closed fracture (principal); I11.9 Hypertensive heart disease without heart failure; E66.9 Obesity, unspecified; Z68.41 Body mass index [BMI] 40.0-44.9, adult; Z79.899 Other long term (current) drug therapy; W17.89XA Other fall from one level to another, initial encounter; Y93.89 Activity, other specified
CPT/HCPCS: 71101; 99284; 96372 ×2; J1170 ×2

== ENCOUNTER 2023-12-07 11:22 | Day surgery (SDC) | payer MEDICARE ==
[2023-12-05 15:08] VITALS: BMI 39.8
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
[2023-12-07] MEDS: IV FLUID CONTINUATION 1,000 ML IV ONE (13:45)
[2023-12-07 13:51] VITALS: TEMP 97.8
[2023-12-07] MEDS: LACTATED RINGERS 1,000 ML IV SCH (13:59)
[2023-12-07] MEDS ORDERED: fentaNYL (PF) 50 MCG/ML 2 ML AMP ONE (14:53)
[2023-12-07] MEDS ORDERED: PROPOFOL 10 MG/ML 20 ML VIAL IV ONE (14:53)
[2023-12-07] MEDS: ceFAZolin 3 GM in SODIUM CHLORIDE 0.9% 100 ML IVPB PRN (14:53)
[2023-12-07] MEDS ORDERED: MIDAZOLAM 2 MG/2 ML VIAL ONE (14:53)
[2023-12-07] MEDS ORDERED: KETAMINE HCL IN 0.9 % NACL 50 MG/5 ML SYRINGE ONE (14:53)
[2023-12-07] MEDS: LIDOCAINE 2% INJ 20 MG/ML SQ ONE ×2 (14:58→15:08)
--- NOTE | 2023-12-07 15:12 | P.OP ---
Date of Procedure: 12/07/23 Preoperative Diagnosis: Adenocarcinoma of the prostate Postoperative Diagnosis: Same Procedure(s) Performed: SpaceOAR implant Anesthesia: MAC Surgeon: Jerel Aponte Estimated Blood Loss (ml): 5 IV fluids (ml): 200 Pathology: none sent Condition: stable Disposition: PACU Indications for Procedure: The patient is a 73-year-old white male with multiple medical problems. He has no family history of prostate cancer. His PSA level has been rising and was m ost recently 18.30. MRI of the prostate showed multiple PI-RADS 3 lesions within the peripheral zone. He underwent MRI fusion biopsies of the prostate. 9 of 14 biopsies showed Vianca 7 adenocarcinoma. His Prolaris score was 3.6, and his PSMA PET/CT scan was negative. Alternative treatment options were reviewed, and he elected to be treated with IMRT in conjunction with androgen deprivation therapy for 6 to 12 months. He now comes for SpaceOAR implant to reduce rectal toxicity risk. Operative Findings: 12 mm separation created between prostate and rectum. Description of Procedure: The patient was taken to the operating room and placed in the dorsolithotomy position, with his legs supported in Onel stirrups. The external genitalia was prepped and draped sterilely. The [employer] transrectal ultrasound probe was placed intrarectally. The prostate was imaged. The probe was then placed within the stabilizing stand. A spinal needle was advanced under ultrasonic guidance to the level of the urogenital diaphragm, and lidocaine was used to infiltrate the tissues as the needle was withdrawn. Next, the SpaceOAR needle was passed through the midline of the perineum, 1-2 cm anterior to the anal opening. The needle was slowly advanced under ultrasonic guidance until the needle tip was located within the fat plane between the prostate and rectum, at the level of the mid prostate gland. The needle was confirmed to be midline on the axial imaging. A small amount of normal saline was injected for hydrodissection. Next, the SpaceOAR components were mixed and loaded into the Y connector per protocol. The Y connector was then connected to the needle, and the components were injected slowly over a course of approximately 12 seconds. A total of 10 ml was injected. Significant distance was created between the prostate and rectum, as desired. It should be noted that at no point was there any concern of rectal perforation. The needle was withdrawn, as well as the transrectal ultrasound probe, and the procedure was terminated. The patient tolerated the procedure well and was taken to the recovery room in stable condi tion.
[2023-12-07 15:20] VITALS: PULSE 71
[2023-12-07 15:35] VITALS: BP 122/62; RESP 18
== END 2023-12-07 16:33 | disposition home or self-care (01) ==
LOC: OR 11:22
PROVIDERS: ATTEND Urology
DX: C61 Malignant neoplasm of prostate (principal); E78.5 Hyperlipidemia, unspecified; I10 Essential (primary) hypertension; I25.10 Atherosclerotic heart disease of native coronary artery without angina pectoris; J44.9 Chronic obstructive pulmonary disease, unspecified; M19.90 Unspecified osteoarthritis, unspecified site; N40.0 Benign prostatic hyperplasia without lower urinary tract symptoms; G47.33 Obstructive sleep apnea (adult) (pediatric); Z79.890 Hormone replacement therapy; Z90.79 Acquired absence of other genital organ(s); Z91.030 Bee allergy status
CPT/HCPCS: 55874; C1889; J2001; J2250; J0690; J3010; J2704

== ENCOUNTER → 2024-01-24 | Outpatient (CLI) | payer MEDICARE ==
--- NOTE | 2024-01-29 09:30 | MR ---
EXAMINATION TYPE: MR shoulder LT wo con DATE OF EXAM: 01/24/2024 COMPARISON: Radiograph 10/23/2022 HISTORY: 73-year-old male M25.512, M17.012, fall 5-6 weeks ago, pain, RCT, decreased ROM, history of prostate CA TECHNIQUE: Multiplanar, multisequence imaging of the left shoulder is performed without contrast. FINDINGS: There is thickening and heterogeneity of the intracapsular portion of the long head biceps tendon with moderate tenosynovial fluid along the bicipital groove. Partial tearing involving the superior third fibers of the subscapularis tendon. The majority of the tendon remains intact. Moderate degenerative change of the acromioclavicular joint with joint space narrowing, marginal spur ring, and capsular hypertrophy. There is a large full-thickness tear of the majority of the infraspinatus tendon extending anteriorly to involve mid and posterior supraspinatus tendon. Minimal was the fibers may remain in this region. Torn stump retracted by 3.2 cm anterior measures up to nearly 3 cm AP. There is mild to moderate atrophy of the infraspinatus muscle belly with prominent reactive muscle ed shelley. Minimal fatty streaks within both supraspinatus and infraspinatus muscle bellies. Trace fluid in the subacromial/subdeltoid bursa. The glenohumeral joint shows mild diffuse cartilage thinning. There is a large tear involving the ent michael posterior glenoid labrum extending just under 180 degrees. No para labral cyst. Small glenohumera l joint effusion. No Hill-Sachs deformity or os acromiale. No suspicious bone marrow replacement. IMPRESSION: 1. Large full-thickness tear involving nearly the entire infraspinatus tendon extending anteriorly in to the mid and posterior supraspinatus tendon fibers. Retraction by 3.2 cm and tear measuring 3.0 cm AP. 2. Prominent reactive edema in the infraspinatus muscle belly with mild to moderate atrophy. Mild fat ty streaks located in the supraspinatus and subscapularis muscle bellies. 3. Marked intracapsular long head biceps tendinosis. [id number] tenosynovitis. 4. Partial tear involving the superior fibers of the subscapularis tendon though the majority of the tendon remains intact. 5. Large tear involving nearly the posterior half of the glenoid labrum. 6. Moderate AC joint OA. [facility], , 01/29/2024 9:28 AM
== END | disposition home or self-care (01) ==
LOC: RADMRIMAIN 08:54
PROVIDERS: ATTEND Orthopaedic Surgery
DX: S46.011A Strain of muscle(s) and tendon(s) of the rotator cuff of right shoulder, initial encounter (principal); S46.012A Strain of muscle(s) and tendon(s) of the rotator cuff of left shoulder, initial encounter; M48.02 Spinal stenosis, cervical region; M19.011 Primary osteoarthritis, right shoulder; M19.012 Primary osteoarthritis, left shoulder; S46.002D Unspecified injury of muscle(s) and tendon(s) of the rotator cuff of left shoulder, subsequent encounter; M50.30 Other cervical disc degeneration, unspecified cervical region; R60.9 Edema, unspecified; M65.9 Synovitis and tenosynovitis, unspecified; M47.22 Other spondylosis with radiculopathy, cervical region

== ENCOUNTER → 2024-05-22 | Outpatient (CLI) | payer MEDICARE ==
[2024-05-22 20:00] LABS: ALT 15 U/L (10-49); AST 13 U/L (14-35); Chol/HDL Ratio 3.83 Ratio; LDL Cholesterol,Calculated 96.7 mg/dL (0.0-131.0); PSA Annual Screen 0.028 ng/mL (0.000-4.000)
[2024-05-22 20:03] LABS: Testosterone <10.00 ng/dL (86.98-780.10)
== END | disposition home or self-care (01) ==
LOC: LABWHC1 12:21
PROVIDERS: ATTEND Radiology Radiation Oncology
DX: E78.00 Pure hypercholesterolemia, unspecified (principal); C61 Malignant neoplasm of prostate; Z87.891 Personal history of nicotine dependence
CPT/HCPCS: 80061; 84450; 84460; 84403; 36415; G0103

== ENCOUNTER → 2024-10-16 | Outpatient (CLI) | payer MEDICARE ==
--- NOTE | 2024-10-20 20:16 | MR ---
EXAMINATION TYPE: MR brain wo/w con DATE OF EXAM: 10/16/2024 5:23 PM COMPARISON: 06/08/2021 CLINICAL INDICATION: Male, 74 years old with history of R42 DIZZINESS, R29.6, R51.9, Dizziness, Falli ng, Headaches, Forgetfull, Hx Prostate cancer May 2023, TECHNIQUE: Multiplanar, multiecho imaging on a 3.0 Debbie magnet is performed through the brain. Stud y is performed within 24 hours of arrival to the hospital.Multiplanar, multiecho imaging on a 3.0 Inge la magnet is performed through the knee. IV Contrast: 13.5 mL Gadobutrol (None, if empty) FINDINGS: The craniovertebral junction is normal. The pituitary is normal. Diffusion-weighted imaging is performed. No abnormal hyperintensity is present to suggest an acute i ntracranial infarct or acute ischemic change. Signal within the brain appears normal . Ventricles and sulci are appropriate for the patient age. Following contrast administration no suspicious enhancement. IMPRESSION: 1. No suspicious acute changes MRI brain [facility], , 10/20/2024 8:13 PM
== END | disposition home or self-care (01) ==
LOC: RADMRIMAIN 15:38
PROVIDERS: ATTEND Family Medicine
DX: R42 Dizziness and giddiness (principal); R29.6 Repeated falls; R51.9 Headache, unspecified; Z85.46 Personal history of malignant neoplasm of prostate
CPT/HCPCS: 70553; A9585

== ENCOUNTER → 2024-10-31 | Outpatient (CLI) | payer MEDICARE ==
[2024-10-31 13:15] VITALS: BP 128/80; PULSE 72; RESP 18; TEMP 97.5
--- NOTE | 2024-10-31 13:46 | P.PROGSL ---
Subjective DATE: 10/31/2024 FOLLOW UP VISIT. Patient with obstructive sleep apnea hypopnea syndrome return to sleep center for follow-up visit. Information from previous visit have been reviewed. Patient is using PAP equipment every night for the whole night, getting PAP supplies in time. The patient does not have significant problems with the mask, PAP unit and humidification. Peterman sleepiness scale is significantly increased to 19. I checked information from PAP unit. PAP unit pressure 10 cm H2O. Usage is 100% for more then 4 hours, average 9.5 hours per night. Leak is 18 l/m, which is in acceptable range. Apnea Hypopnea Index is 4.3, which is normal. MEDICATIONS have been reviewed, please see below. During physical exam: GENERAL: A pleasant patient without any distress. VITAL SIGNS: Please see below, weight is 323 lbs. HEENT: PERRLA, EOMI.low position of soft palate, Mallapati 4 . NECK: Supple. No JVD. LUNGS: Clear to percussion and to auscultation. Good air exchange. No wheezing or rhonchi. HEART: S1, S2 regular. ABDOMEN: Soft and nontender. Obese EXTREMITIES: No clubbing or cyanosis. ENROLLMENT MANAGEMENT VICE PRESIDENT: Awake, alert, and oriented x3. No focal deficit. Impressions: 1. Obstructive sleep apnea-hypopnea syndrome. Patient demonstrated great compliance with treatment, benefiting from treatment. Patient feels sleepiness during the day. 2. Obesity, BMI 43.8. 3. Hypertension. 4. Coronary artery disease, status post stent insertion in 2018. 5. Status post left hip replacement. 6. Asthma. 7. BPH. 8. Hyperlipidemia. I changed parameters in CPAP unit to AutoPap with a range of pressure 9 to 15 cm of water with a goal to prevent excessive sleepiness possibly related to some residual respiratory events. Plan: 1. Continue using PAP equipment every night for the whole night. 2. Sleep hygiene with regular time in bed for at least 7.5-8 hours 3. PAP unit should stay lower then position of the head. 4. Advised patient to remove all remaining water from humidifier canister daily and make it dry after each usage. Refill canister with fresh distilled water before each usage. 5. Watching weight. 6. Precautions related to driving. No driving if feel any sleepiness. 7. I will maintain prescription for PAP supplies including mask, tube, filters. 8. Follow up visit in 8 months or earlier if patient has any problems. Thank you very much for allowing me to participate in the management of your patient. Simone Livingston MD, PhD, FAASM. Diplomat of [place] [employer], Sleep Medicine Board by [employer] Chief [employer] [facility] Objective - Vital Signs Vital Signs: Vital Signs Temp 97.5 F L 10/31/24 13:13 Pulse 72 10/31/24 13:13 Resp 18 10/31/24 13:13 BP 128/80 10/31/24 13:13 Pulse Ox 97 10/31/24 13:13 FiO2 Intake & Output 10/30/24 10/31/24 10/31/24 18:59 06:59 18:59 Weight 146.51 kg Home Medications: Home Medications Medication Instructions Recorded Confirmed Type Atorvastatin [Lipitor] 80 mg PO HS 05/03/16 10/31/24 History Levothyroxine Sodium [Synthroid] 25 mcg PO QAM 05/03/16 10/31/24 History Tamsulosin [Flomax] 0.4 mg PO QAM 05/03/16 10/31/24 History Aspirin EC [Ecotrin Low Dose] 81 mg PO DAILY 11/30/17 10/31/24 History Metoprolol Tartrate [Lopressor] 25 mg PO BID 11/30/17 10/31/24 History Potassium Chloride [Klor-Con 10 ER] 10 meq PO DAILY 01/22/18 12/05/23 History Furosemide [Lasix] 40 mg PO DAILY #1 tablet 01/29/18 12/05/23 Rx Albuterol Sulfate [Albuterol 2 puff PO RT-QID PRN 11/12/19 10/31/24 History Sulfate Hfa] FLUoxetine HCL [PROzac] 40 mg PO QAM 05/05/21 10/31/24 History Bicalutamide 50 mg PO QAM 11/10/23 12/05/23 History ARIPiprazole [Abilify] 2 mg PO HS 12/05/23 12/05/23 History Ergocalciferol [Vitamin D2 (1250 1,250 mcg PO WE 12/05/23 10/31/24 History Mcg = 99249 Iu)] Isosorbide Mononitrate [Isosorbide 30 mg PO QAM 12/05/23 10/31/24 History Mononitrate ER]
== END ==
LOC: 3 N SLEEP 12:55
PROVIDERS: ATTEND Internal Medicine
DX: G47.33 Obstructive sleep apnea (adult) (pediatric) (principal); E66.9 Obesity, unspecified; I10 Essential (primary) hypertension; I25.10 Atherosclerotic heart disease of native coronary artery without angina pectoris; J45.909 Unspecified asthma, uncomplicated; E78.5 Hyperlipidemia, unspecified; N40.0 Benign prostatic hyperplasia without lower urinary tract symptoms; Z68.41 Body mass index [BMI] 40.0-44.9, adult; Z95.5 Presence of coronary angioplasty implant and graft; Z96.642 Presence of left artificial hip joint; Z99.89 Dependence on other enabling machines and devices; Z87.891 Personal history of nicotine dependence
CPT/HCPCS: 99212